=== PATIENT | female | born 1945 | race Hispanic/Latino ===

== ENCOUNTER → 2017-12-30 | Outpatient (CLI) | payer MEDICARE, OTHER ==
[~2017-12-30] MED LIST: ASPIRIN81 M1; ATENOLOL50 MG; CALCIUM; DIOVAN160 MG PO; FISH OIL; FOLIC ACID1 MG; LASIX40 MG PO; LIPITOR40 MG; METAMUCIL; METAMUCIL0.52 GM PO; METRONIDAZOLE500 MG; MULTIGEN PLUS1 EACH; NORCO 5-325 TA1 EACH PO; NORTRIPTYLINE H25 MG; SPIRIVA18 MCG; SYMBICORT 16010.2 GM INH; VITAMIN B COMP1 EAC1
--- NOTE | 2017-12-30 15:27 | Diagnostic Imaging Report ---
EXAMINATION: ABDOMEN-1VIEW (KUB) INDICATION: Renal calculus COMPARISON: KUB 03/02/2017. FINDINGS: There is a nonobstructive bowel gas pattern. No evidence of free intraperitoneal air. There are no abnormal calcifications projecting over the expected location of the kidneys, ureters, or bladder. Status post cholecystectomy. No acute bony findings. Partially visualized bilateral total hip arthroplasties. IMPRESSION: No acute radiographic abnormality. No evidence of stone. Signed by: Dr. Johnny Le MD on 12/30/2017 3:24 PM
== END ==
LOC: RAD 14:16
PROVIDERS: ATTEND Urology
DX: N20.0 Calculus of kidney (principal)
CPT/HCPCS: 74018

== ENCOUNTER → 2018-05-05 | Outpatient (CLI) | payer MEDICARE, OTHER ==
[~2018-05-05] MED LIST changes: +IOPAMIDOL 370 MG/ML 200 ML INFUS..BTL INJ ONE; +SODIUM CHLORIDE 0.9% 100 ML 100 ML ONE; +SODIUM CHLORIDE 0.9% 250ML 500 ML ONE
[2018-05-05 17:54] LABS: CREATININE, SERUM 1.04 mg/dL (0.57-1.11)
--- NOTE | 2018-05-05 21:06 | Diagnostic Imaging Report ---
EXAMINATION: CT angio of the neck and head with contrast. HISTORY:Chiari type 2 malformation, assess carotid artery stenosis. COMPARISON:Report of MRI brain from 04/23/2016, CTA head and neck from 02/06/2016, prior images are not available for comparison at the time of interpretation. TECHNIQUE: Multidetector helical axial images were acquired through the neck and head during infusion of iodinated contrast material. Images were reviewed in multiplanar and 3-dimensional format. Dose modulation, iterative reconstruction, and/or weight based adjustment of the mA/kV was utilized to reduce the radiation dose to as low as reasonably achievable. Contrast: 100 mL of Isovue-370 . FINDINGS: NECK: If carotid bulb stenosis is present, stenosis is measured with respect to the distal extracranial internal carotid artery. Aortic arch and major vessels: Scattered nonstenotic atherosclerotic calcification of the aortic arch and at the origin of right brachiocephalic trunk, left common carotid artery and right subclavian artery. Left subclavian artery stent in place with contrast/flow within the stent, but distal to the stent there is stenosis/occlusion. Distal left subclavian artery is patent arising from the vascular bypass from left common carotid artery. Common carotid arteries and carotid bulb: Nonstenotic multifocal mixed atherosclerotic plaque in bilateral common carotid artery. Hard atherosclerotic plaque at the site of vascular bypass surgery between the distal left subclavian and left common carotid artery results in approximately 10% vascular stenosis. Status post left common carotid, carotid bifurcation/carotid bulb endarterectomy with patent vessels. Internal carotid arteries: Right: Soft atherosclerotic plaque at the origin of right internal carotid artery without significant vascular stenosis. Hard atherosclerotic plaque in proximal cervical segment of right internal carotid artery approximately 1.2 cm above the bifurcation results in approximately 15% vascular stenosis. Left: Soft atherosclerotic plaque in proximal left internal carotid artery just above the carotid bifurcation results in approximately 50% vascular stenosis. Vertebral arteries: Moderate stenosis at the origin of right vertebral artery due to hard atherosclerotic plaque. Nonstenotic focal hard atherosclerotic plaque in V2 and V4 segment of right vertebral artery. Left vertebral artery originates from the left subclavian artery just distal to the stent and proximal to the occlusion/severe stenosis. Focal nonstenotic hard atherosclerotic plaque in the proximal V4 segment of left vertebral artery HEAD: Internal carotid arteries: Mild atherosclerotic plaque in bilateral carotid siphon. Patent bilateral A1 and M1 segments. Vertebral arteries: Nonstenotic focal hard atherosclerotic plaque in bilateral V4 segments. Basilar artery: Patent. Posterior cerebral arteries: Patent. Anatomical variants: Anterior communicating artery :Present Posterior communicating arteries: Patent on right, not visualized on left. Vertebral arteries: Dominant right. Incidental finding: Expected postoperative changes from prior decompressive suboccipital craniectomy for treatment of Chiari malformation. Cervical spine: C5-C6: Severe right foraminal stenosis due to facet and uncovertebral arthrosis. C6-C7: Mild right foraminal stenosis due to facet and uncovertebral arthrosis. C7-T1: Severe right foraminal stenosis due to facet and uncovertebral arthrosis. IMPRESSION: 1. Soft atherosclerotic plaque results in approximately 50% vascular stenosis in proximal left internal carotid artery just above the bifurcation, status post left cervical carotid bifurcation-carotid bulb endarterectomy with patent vessel. 2. Unchanged moderate stenosis at the origin of right vertebral artery. 3. Mild atherosclerosis in bilateral carotid siphon. Multifocal scattered nonstenotic atherosclerotic plaque as detailed above. 4. Left subclavian artery stent with distal stenosis; patent left carotid to distal subclavian artery bypass. Signed by: Dr. Yvonne Harkins M.D. on 05/05/2018 9:03 PM
== END ==
LOC: CT 16:41
PROVIDERS: ATTEND Psychiatry & Neurology Clinical Neurophysiology
DX: G93.5 Compression of brain (principal); I65.29 Occlusion and stenosis of unspecified carotid artery; I67.9 Cerebrovascular disease, unspecified; R41.3 Other amnesia
CPT/HCPCS: 36415; 70496; 70498; 82565; 84520; 96360; J7050; Q9967

== ENCOUNTER → 2018-07-01 | Outpatient (CLI) | payer MEDICARE, OTHER ==
[~2018-07-01] MED LIST changes: -IOPAMIDOL 370 MG/ML 200 ML INFUS..BTL INJ ONE; -SODIUM CHLORIDE 0.9% 100 ML 100 ML ONE; -SODIUM CHLORIDE 0.9% 250ML 500 ML ONE
--- NOTE | 2018-07-01 15:10 | Diagnostic Imaging Report ---
EXAM: Renal Ultrasound INDICATION: Urinary tract infection. COMPARISON: None TECHNIQUE: Transverse and longitudinal images of the kidneys and bladder were obtained. FINDINGS: Right Kidney: Length: Measures 10.8 x 4.2 x 4.8 cm Appearance: Normal echogenicity. Collecting system: No hydronephrosis Stones: None Cyst/Mass: No evidence of solid mass. There is an anechoic, simple appearing cyst within the midpole measuring up to 3.6 cm without associated vascular flow. Left Kidney: Length: Measures 10.9 x 4.2 x 5.0 cm Appearance: Normal echogenicity. Collecting system: No hydronephrosis Stones: None Cyst/Mass: None Bladder: Unremarkable in appearance. Bilateral ureteral jets are seen. IMPRESSION: No evidence of hydronephrosis or stone. Simple appearing right mid pole renal cyst. Signed by: Dr. Johnny Le MD on 07/01/2018 3:07 PM
--- NOTE | 2018-07-01 16:37 | Diagnostic Imaging Report ---
Abdomen/KUB INDICATION: ^[id number] ^[id number] ^URINARY TRACT INFECTION COMPARISON: Abdomen x-ray 12/30/2017 FINDINGS: Medical Devices: Loop recorder device situated over the mediastinum. Dual-lead pacemaker wires terminate in the right atrium and right ventricle. Median sternotomy wires are intact. Cholecystectomy clips are stable. Bowel: Unremarkable bowel gas pattern. No dilated bowel loops. Moderate to large amount of stool in the right colon and moderate amount of stool in the transverse colon. Free air: None Calcifications: None over the renal shadows or along the expected course of the ureters. Two phleboliths in the left pelvis are stable in position. Organomegaly: None Lung bases: Clear. The heart is enlarged with mild vascular congestion Bones: Bilateral hip prostheses are redemonstrated. No evidence of hardware failure. Mild degenerative changes of the spine are stable. Soft tissues: Calcifications of the vascular structures in the pelvis. IMPRESSION: Large amount of stool. No evidence of bowel obstruction. No radiographic evidence of renal calculus. Signed by: Dr. David Armas MD on 07/01/2018 4:34 PM
== END ==
LOC: US 13:57
PROVIDERS: ATTEND Urology
DX: N39.0 Urinary tract infection, site not specified (principal)
CPT/HCPCS: 74018; 76770

== ENCOUNTER 2019-06-06 15:16 | Inpatient (IN) | payer MEDICARE, OTHER ==
[~2019-06-06] VITALS: Ht 160 cm; Wt 72.6 kg
[~2019-06-06 15:16] MED LIST changes: -FOLIC ACID1 MG; +FOLIC ACID1 MG PO
[2019-06-06] MEDS ORDERED: SODIUM CHLORIDE 0.9% 1000ML 1,000 ML IV STA ×2 (15:20→15:23)
--- OUTSIDE RECORDS SUMMARY | 2019-06-06 15:23 | XMS REPORT ---
Author Author [facility] Address Unknown Phone Unavailable Care Team Providers Care [facility] Name Role Phone GRETCHEN LINDER Unavailable Unavailable WEDNESDAY, BOBBI Unavailable Unavailable Payers Payer Name Policy Type Policy Number Effective Date Expiration Date Problems This patient has no known problems. Allergies, Adverse Reactions, Alerts Allergy Name Allergy Type Status Severity Reaction(s) Onset Date Inactive Date Treating Clinician Comments Onions FA Active U 2019-05-04 00:00:00 Penicillins DA Active U 2019-05-04 00:00:00 Sulfa (Sulfonamide Antibiotics) DA Active U 2019-05-04 00:00:00 meloxicam DA Active SV 2019-05-04 00:00:00 Onions FA Active U 2016-05-03 00:00:00 Penicillins DA Active U 2016-05-03 00:00:00 Sulfa (Sulfonamide Antibiotics) DA Active U 2016-05-03 00:00:00 meloxicam DA Active SV 2016-05-03 00:00:00 Medications This patient has no known medications. Results Test Description Test Time Test Comments Text Results Atomic Results Result Comments CBC W/AUTO DIFF 2019-05-29 11:09:00 WHITE BLOOD CELL (test code=WBC) 7.2 K/mm3 4.5-12.5 RED BLOOD CELL (test code=RBC) 2.83 mill/mm3 3.7-5.2 HEMOGLOBIN (test code=HGB) 7.9 gram/dL 11.5-15.5 HEMATOCRIT (test code=HCT) 26.1 % 36.0-46.0 MEAN CELL VOLUME (test code=MCV) 92.2 fL 80-98 MEAN CELL HGB (test code=MCH) 27.9 picogram 27.0-33.0 MEAN CELL HGB CONCETRATION (test code=MCHC) 30.3 gram/dL 33.0-36.0 RED CELL DISTRIBUTION WIDTH (test code=RDW) 14.6 % 11.6-16.2 RED CELL DISTRIBUTION WIDTH SD (test code=RDW-SD) 49.4 fL 37.0-51.0 PLATELET COUNT (test code=PLT) 232 K/mm3 150-450 MEAN PLATELET VOLUME (test code=MPV) 9.8 fL 6.7-11.0 NEUTROPHIL % (test code=NT%) 81.9 % 39.0-69.0 IMMATURE GRANULOCYTE % (test code=IG%) 0.4 % 0.0-5.0 LYMPHOCYTE % (test code=LY%) 7.9 % 25.0-55.0 MONOCYTE % (test code=MO%) 6.3 % 0.0-10.0 EOSINOPHIL % (test code=EO%) 3.1 % 0.0-5.0 BASOPHIL % (test code=BA%) 0.4 % 0.0-1.0 NUCLEATED RBC % (test code=NRBC%) 0.0 % 0-0 NEUTROPHIL # (test code=NT#) 5.88 K/mm3 1.8-7.7 IMMATURE GRANULOCYTE # (test code=IG#) 0.03 x10 3/uL 0-0.03 LYMPHOCYTE # (test code=LY#) 0.57 K/mm3 1.0-5.0 MONOCYTE # (test code=MO#) 0.45 K/mm3 0-0.8 EOSINOPHIL # (test code=EO#) 0.22 K/mm3 0.0-0.5 BASOPHIL # (test code=BA#) 0.03 K/mm3 0.0-0.2 NUCLEATED RBC # (test code=NRBC#) 0.00 K/mm3 0.0-0.1 FE W/TOTAL IRON BINDING CAP.2019-05-27 19:22:00* Test Item Value Reference Range Comments SERUM IRON (test code=IRON) 208 ug/dL 50-175 TOTAL IRON BINDING CAPACITY (test code=TIBC) 486 mcg/dL 250-450 IRON SATURATION (test code=FESAT) 42.80 % 13-45 BASIC METABOLIC [id number] 05:34:00* Test Item Value Reference Range Comments SODIUM (test code=NA) 143 mmol/L 136-145 POTASSIUM (test code=K) 3.4 mmol/L 3.5-5.1 CHLORIDE (test code=CL) 109.0 mmol/L 98-107 CARBON DIOXIDE (test code=CO2) 26.0 mmol/L 21-32 ANION GAP (test code=GAP) 11.4 10-20 GLUCOSE (test code=GLU) 115 mg/dL 74-106 BLOOD UREA NITROGEN (test code=BUN) 19 mg/dL 7-18 GLOMERULAR FILTRATION RATE (test code=GFR) > 60 mL/min >=60 Estimated GFR by using Modified MDRD formula.Chronic kidney disease is defined as either kidney damageor GFR <60 mL/min/1.73 m2 for >3 months. CREATININE (test code=CREAT) 0.90 mg/dL 0.55-1.02 Note change in reference range due to change in reagent. BUN/CREATININE RATIO (test code=BUN/CREA) 21.1 10-20 CALCIUM (test code=CA) 8.7 mg/dL 8.5-10.1 BASIC METABOLIC [id number] 05:25:00* Test Item Value Reference Range Comments SODIUM (test code=NA) 143 mmol/L 136-145 POTASSIUM (test code=K) 3.4 mmol/L 3.5-5.1 CHLORIDE (test code=CL) 109.0 mmol/L 98-107 CARBON DIOXIDE (test code=CO2) mmol/L 21-32 ANION GAP (test code=GAP) 10-20 GLUCOSE (test code=GLU) mg/dL 74-106 BLOOD UREA NITROGEN (test code=BUN) mg/dL 7-18 GLOMERULAR FILTRATION RATE (test code=GFR) mL/min >=60 CREATININE (test code=CREAT) mg/dL 0.55-1.02 BUN/CREATININE RATIO (test code=BUN/CREA) 10-20 CALCIUM (test code=CA) mg/dL 8.5-10.1 CBC W/AUTO [id number] 05:07:00* Test Item Value Reference Range Comments WHITE BLOOD CELL (test code=WBC) 6.0 K/mm3 4.5-12.5 RED BLOOD CELL (test code=RBC) 2.98 mill/mm3 3.7-5.2 HEMOGLOBIN (test code=HGB) 8.3 gram/dL 11.5-15.5 HEMATOCRIT (test code=HCT) 27.1 % 36.0-46.0 MEAN CELL VOLUME (test code=MCV) 90.9 fL 80-98 MEAN CELL HGB (test code=MCH) 27.9 picogram 27.0-33.0 MEAN CELL HGB CONCETRATION (test code=MCHC) 30.6 gram/dL 33.0-36.0 RED CELL DISTRIBUTION WIDTH (test code=RDW) 14.4 % 11.6-16.2 RED CELL DISTRIBUTION WIDTH SD (test code=RDW-SD) 47.5 fL 37.0-51.0 PLATELET COUNT (test code=PLT) 194 K/mm3 150-450 MEAN PLATELET VOLUME (test code=MPV) 10.8 fL 6.7-11.0 NEUTROPHIL % (test code=NT%) 81.6 % 39.0-69.0 IMMATURE GRANULOCYTE % (test code=IG%) 0.3 % 0.0-5.0 LYMPHOCYTE % (test code=LY%) 9.6 % 25.0-55.0 MONOCYTE % (test code=MO%) 5.5 % 0.0-10.0 EOSINOPHIL % (test code=EO%) 2.5 % 0.0-5.0 BASOPHIL % (test code=BA%) 0.5 % 0.0-1.0 NUCLEATED RBC % (test code=NRBC%) 0.0 % 0-0 NEUTROPHIL # (test code=NT#) 4.91 K/mm3 1.8-7.7 IMMATURE GRANULOCYTE # (test code=IG#) 0.02 x10 3/uL 0-0.03 LYMPHOCYTE # (test code=LY#) 0.58 K/mm3 1.0-5.0 MONOCYTE # (test code=MO#) 0.33 K/mm3 0-0.8 EOSINOPHIL # (test code=EO#) 0.15 K/mm3 0.0-0.5 BASOPHIL # (test code=BA#) 0.03 K/mm3 0.0-0.2 NUCLEATED RBC # (test code=NRBC#) 0.00 K/mm3 0.0-0.1 - XR HIP W PEL BI MIN5 [id number] 21:36:00 FAX: Adi Eisenberg MD [phone] [place]: St: ADM FAX: Franklyn Gorman MD [phone] FAX: Jackelyn White MD [phone] Name: ANTONIASANTOS ANN [facility] : 1945 Age/S: 74/F [address] Unit #: [id number] Loc: [place] [address] Phys: Adi Erickson MD Acct: [id number] Dis Date: Status: ADM IN ONE #: [phone] Exam Date: 05/24/20192041 FAX #: [phone] Reason: pain after fall EXAMS: CPT CODE: [id number] XR HIP W PEL BI MIN5 VW 67675 HISTORY: Pain after fall. COMPARISON: X-ray from May 04, 2019. Location: TH. Bilateral hip series, 5 views: Pelvic ring is intact on a single view. Additional views would be of value. Sy mphysis is well opposed. Bilateral hip prosthesis appear well-positioned. No loosening or fracture is noted. SI joints are preserved. Mild osteo penia is noted. Soft tissues are normal. Vascular calcifications. IMPRESSION: No acute fracture or dislocation of eith er hip. Bilateral hip prosthesis in good position without loosening or fracture. a t 2135 Reported and signed by: Buddy Gomez M.D. CC: Adi Erickson MD; Franklyn Johnson MD; Jackelyn Yusuf MD Technol ogist: CICI CorralesR Trnscrd Date/Time/ By: 05/24/2019 (2135) : By: [email or web address] Orig Print D/T: S: 05/24/2019 (3 806) PAGE 1 Signed Report FOLIC [id number] 20:21:00* Test Item Value Reference Range Comments FOLIC ACID (test code=FOL) 28.3 ng/mL 3.10-17.50 [id number] 20:21:00* Test Item Value Reference Range Comments FERRITIN (test code=EDI) 22 ng/mL 8-388 FOLIC [id number] 20:17:00* Test Item Value Reference Range Comments FOLIC ACID (test code=FOL) ng/mL 3.10-17.50 [id number] 20:17:00* Test Item Value Reference Range Comments FERRITIN (test code=EDI) 22 ng/mL 8-388 VITAMIN [id number] 20:03:00* Test Item Value Reference Range Comments VITAMIN B12 (test code=VITB12) 570 pg/mL 193-986 RETICULOCYTE [id number] 19:28:00* Test Item Value Reference Range Comments RETICULOCYTE COUNT (test code=RETICT) 2.99 % 0.5-2.0 RETIC COUNT ABSOLUTE (test code=RET#) 0.080 mill/mm3 0.016-0.095 IMMATURE RETICULOCYTE FRACTION (test code=IRF) 26.3 % 3.0-15.9 Values above normal range indicate an increase in RBCcellular response from bone marrow. RETICULOCYTE HGB EQUIVALENT (test code=RETHE) 29.2 pg 28.2-35.7 RET-He is a direct estimate of recent functionalavailability of iron in the cell, therefore, decreasedRET-He is indicative of iron deficiency. BASIC METABOLIC [id number] 08:21:00* Test Item Value Reference Range Comments SODIUM (test code=NA) 143 mmol/L 136-145 POTASSIUM (test code=K) 3.5 mmol/L 3.5-5.1 CHLORIDE (test code=CL) 111.0 mmol/L 98-107 CARBON DIOXIDE (test code=CO2) 27.0 mmol/L 21-32 ANION GAP (test code=GAP) 8.5 10-20 GLUCOSE (test code=GLU) 120 mg/dL 74-106 BLOOD UREA NITROGEN (test code=BUN) 14 mg/dL 7-18 GLOMERULAR FILTRATION RATE (test code=GFR) > 60 mL/min >=60 Estimated GFR by using Modified MDRD formula.Chronic kidney disease is defined as either kidney damageor GFR <60 mL/min/1.73 m2 for >3 months. CREATININE (test code=CREAT) 0.90 mg/dL 0.55-1.02 Note change in reference range due to change in reagent. BUN/CREATININE RATIO (test code=BUN/CREA) 15.6 10-20 CALCIUM (test code=CA) 8.9 mg/dL 8.5-10.1 BASIC METABOLIC [id number] 08:12:00* Test Item Value Reference Range Comments SODIUM (test code=NA) 143 mmol/L 136-145 POTASSIUM (test code=K) 3.5 mmol/L 3.5-5.1 CHLORIDE (test code=CL) 111.0 mmol/L 98-107 CARBON DIOXIDE (test code=CO2) mmol/L 21-32 ANION GAP (test code=GAP) 10-20 GLUCOSE (test code=GLU) mg/dL 74-106 BLOOD UREA NITROGEN (test code=BUN) mg/dL 7-18 GLOMERULAR FILTRATION RATE (test code=GFR) mL/min >=60 CREATININE (test code=CREAT) mg/dL 0.55-1.02 BUN/CREATININE RATIO (test code=BUN/CREA) 10-20 CALCIUM (test code=CA) mg/dL 8.5-10.1 CBC W/AUTO [id number] 07:58:00* Test Item Value Reference Range Comments WHITE BLOOD CELL (test code=WBC) 5.5 K/mm3 4.5-12.5 RED BLOOD CELL (test code=RBC) 2.68 mill/mm3 3.7-5.2 HEMOGLOBIN (test code=HGB) 7.4 gram/dL 11.5-15.5 HEMATOCRIT (test code=HCT) 24.5 % 36.0-46.0 MEAN CELL VOLUME (test code=MCV) 91.4 fL 80-98 MEAN CELL HGB (test code=MCH) 27.6 picogram 27.0-33.0 MEAN CELL HGB CONCETRATION (test code=MCHC) 30.2 gram/dL 33.0-36.0 RED CELL DISTRIBUTION WIDTH (test code=RDW) 14.9 % 11.6-16.2 RED CELL DISTRIBUTION WIDTH SD (test code=RDW-SD) 49.7 fL 37.0-51.0 PLATELET COUNT (test code=PLT) 193 K/mm3 150-450 MEAN PLATELET VOLUME (test code=MPV) 10.5 fL 6.7-11.0 NEUTROPHIL % (test code=NT%) 78.3 % 39.0-69.0 IMMATURE GRANULOCYTE % (test code=IG%) 0.2 % 0.0-5.0 LYMPHOCYTE % (test code=LY%) 11.7 % 25.0-55.0 MONOCYTE % (test code=MO%) 7.0 % 0.0-10.0 EOSINOPHIL % (test code=EO%) 2.3 % 0.0-5.0 BASOPHIL % (test code=BA%) 0.5 % 0.0-1.0 NUCLEATED RBC % (test code=NRBC%) 0.0 % 0-0 NEUTROPHIL # (test code=NT#) 4.33 K/mm3 1.8-7.7 IMMATURE GRANULOCYTE # (test code=IG#) 0.01 x10 3/uL 0-0.03 LYMPHOCYTE # (test code=LY#) 0.65 K/mm3 1.0-5.0 MONOCYTE # (test code=MO#) 0.39 K/mm3 0-0.8 EOSINOPHIL # (test code=EO#) 0.13 K/mm3 0.0-0.5 BASOPHIL # (test code=BA#) 0.03 K/mm3 0.0-0.2 NUCLEATED RBC # (test code=NRBC#) 0.00 K/mm3 0.0-0.1 [id number] 16:12:00* Test Item Value Reference Range Comments TROPONIN-I (test code=TROPI) <0.015 ng/mL 0-0.045 COMMENTS TO LOGISTICS PLANNING MANAGER: COLLECT 3 HOURS AFTER PREVIOUS [id number] 11:35:00* Test Item Value Reference Range Comments TROPONIN-I (test code=TROPI) 0.028 ng/mL 0-0.045 COMMENTS TO LOGISTICS PLANNING MANAGER: COLLECT 3 HOURS AFTER PREVIOUS SAMPLELACTIC [id number] 04:38:00* Test Item Value Reference Range Comments LACTIC ACID (test code=LACT) 2.3 mmol/L 0.4-1.9 Results called to [id number] by [email or web address] 05/23/19 0436Critical results verified and read back by Nurse? Y URINALYSIS [id number] 01:31:00* Test Item Value Reference Range Comments UA COLOR (test code=COLU) Light-Yellow YELLOW UA APPEARANCE (test code=APPU) CLEAR CLEAR UA GLUCOSE DIPSTICK (test code=DGLUU) NEGATIVE mg/dL NEGATIVE UA BILIRUBIN DIPSTICK (test code=BILU) NEGATIVE mg/dL NEGATIVE UA KETONE DIPSTICK (test code=KETU) NEGATIVE mg/dL NEGATIVE UA SPECIFIC GRAVITY (test code=SGU) 1.033 1.001-1.035 UA BLOOD DIPSTICK (test code=ELENITA) Negative mg/dL NEGATIVE UA PH DIPSTICK (test code=LUZ MARIA) 6.0 5.0-8.0 UA PROTEIN DIPSTICK (test code=PROU) 20 (Trace) mg/dL NEGATIVE UA UROBILINIOGEN DIPSTICK (test code=URO) Normal mg/dL NEGATIVE UA NITRITE DIPSTICK (test code=MADHU) NEGATIVE NEGATIVE UA LEUKOCYTE ESTERASE W REFLEX (test code=LEUUR) NEGATIVE Aviva/uL NEGATIVE UA WBC (test code=WBCU) 0-5 per HPF 0-5 UA RBC (test code=RBCU) 0-2 #/HPF 0-5 UA EPITHELIAL CELLS (test code=EPIU) Few (2-5/hpf) per HPF FEW UA BACTERIA (test code=BACU) MODERATE #/HPF NONE UA HYALINE CAST (test code=HYALU) 3-5 #/LPF 0-5 UA AMORPHOUS SEDIMENT (test code=AMORU) MODERATE #/LPF NONE Urine Source? Clean CatchURINALYSIS [id number] 01:23:00* Test Item Value Reference Range Comments UA COLOR (test code=COLU) Light-Yellow YELLOW UA APPEARANCE (test code=APPU) CLEAR CLEAR UA GLUCOSE DIPSTICK (test code=DGLUU) NEGATIVE mg/dL NEGATIVE UA BILIRUBIN DIPSTICK (test code=BILU) NEGATIVE mg/dL NEGATIVE UA KETONE DIPSTICK (test code=KETU) NEGATIVE mg/dL NEGATIVE UA SPECIFIC GRAVITY (test code=SGU) 1.033 1.001-1.035 UA BLOOD DIPSTICK (test code=ELENITA) Negative mg/dL NEGATIVE UA PH DIPSTICK (test code=LUZ MARIA) 6.0 5.0-8.0 UA PROTEIN DIPSTICK (test code=PROU) 20 (Trace) mg/dL NEGATIVE UA UROBILINIOGEN DIPSTICK (test code=URO) Normal mg/dL NEGATIVE UA NITRITE DIPSTICK (test code=MADHU) NEGATIVE NEGATIVE UA LEUKOCYTE ESTERASE W REFLEX (test code=LEUUR) NEGATIVE Aviva/uL NEGATIVE UA WBC (test code=WBCU) per HPF 0-5 UA RBC (test code=RBCU) per HPF 0-5 UA EPITHELIAL CELLS (test code=EPIU) per HPF Few UA BACTERIA (test code=BACU) per HPF NONE Urine Source? Clean Catch- XR PELVIS 1/2 [id number] 23:12:00 FAX: Justin Baig MD [place]: B St: REG FAX: Franklyn Gorman MD [phone] Name: SHELBY KNIGHTEVELINE REYEZ [facility] : 1945 Age/S: 74/F [address] [facility] Unit #: [id number] Loc: [place] [address] Phys: Justin Baig MD Acct: [id number] Dis Date: Status: REG ER PHONE #: [phone] Exam Date: 05/22/2019 2300 FAX #: [phone] Reason: PELVIC PAIN EXAMS: CPT CODE: [id number] XR PELVIS 1/2 VIEWS 61928 Pelvis 2 views Dictation location N 13 Clinical history pelvic pain TECHNIQUE: 2 frontal views of the pelvis were obtained. FINDINGS: There are bilateral hip replacements. The tips of the femoral components are no t included on the images. The pelvic ring is intact. SI joints and pubic symphysis are intact. IMPRESSION: No evidence of fracture. Recommend obtaining 2 views of the femurs to fully image the femoral prosthetic components. at 2312 Reported and signed by: Mercedez Villalba M.D. CC: Justin Baig MD; Franklyn Johnson MD Technologist: Juliette Nielsen Trnctrd Date/Time/By: 05/22/2019 (0021) : By: Aliza Orig Print D/T: S: 05/22/2019 (2906) PAGE 1 Signed Report - XR ANKLE 3 + V [id number] 23:10:00 FAX: Justin Baig MD [place]: St: [facility] FAX: Y Franklyn Johnson MD [phone] Name: SANTOS KNIGHT [facility] : 1945 Age/S: 74/F [address] [facility] Unit #: [id number] Loc: [place] [address] Phys: Justin Baig MD Acct: [id number] Dis Date: Status: REG ER PHONE #: [phone] Exam Date: 05/22/2019 2300 FAX #: [phone] Reason: ANKLE PAIN EXAMS: CPT CODE: [id number] XR ANKLE 3 + V RT [address] Location: TH3 Right ankle x-ray exam, 3 views conducted on 05/22/19 CLINICAL HISTORY: Right ankle pain. Trauma. Emergency room present location There is an acute comminuted but essentially nondisplaced fracture through the distal aspect of the right fibula. No other fracture or subluxation. The ankle plafond demonstrates normal alignment. IMPRESSION: Acute but essentially nondisplaced comminuted distal right fibular fracture at 2310 Reported and signed by: Jo-Ann Singleton M.D. CC: Justin Baig MD; Franklyn Johnson MD Technologist: Juliette Nielsen Trnscrd Date/Time/By: 05/22/2019 (2309) : By: [email or web address] Orig Print D/T: S: 05/22/2019 (0196) PAGE 1 Signed Report - XR CHEST 1 [id number] 23:09:00 FAX: Justin Baig MD [place]: St: REG FAX: Y Franklyn Johnson MD [phone] Name: SANTOS KNIGHT [facility] : 1945 Age/S: 74/F [address] [facility] Unit #: [id number] Loc: [place] [address] Phys: Justin Baig MD Acct: [id number] Dis Date: Status: REG ER PHONE #: [phone] Exam Date: 05/22/20192299 FAX #: [phone] Reason: CHEST PAIN EXAMS: CPT CODE: [id number] XR CHEST 1 V 02927 Location: T18 CHEST X-RAY: AP frontal projection, one view, 05/22/19 CLINICAL HISTORY: Chest pain. ER presentation COMPARISON EXAMS: Chest x-ray exam 08/19/18 FINDINGS: Heart size is mildly to moderately prominent with pulmonary venous congestion . This has progressed when compared to the prior study. Evolving interstitial edema is seen also. No alveolar edema or pleural effusion is identified. The mediastinal structures are unremarkable. IMPRESSION: Evolving small degree of cardiac decompensation. at 6869 Reported and signed by: Jo-Ann Singleton M.D. CC: Justin Baig MD; Franklyn Johnson MD Technologist: Juliette Nielsen Trnscrd Date/Time/By: 05/22/2019 (2308) : By: [email or web address] Orig Print D/T: S: 05/22/2019 (1603) PAGE 1 Signed Report - CT C-SPINE W/O [id number] 23:07:00 Name: SANTOS KNIGHT [facility] : 1945 Age/S: 74 / F [address] [facility] Unit #: [id number] Loc: [place] [address] Phys: Justin Baig MD Acct: [id number] Dis Date: Status: REG ER PHONE #: [phone] Exam Date: 05/22/20192234 FAX #: [phone] Reason: Neck Pain EXAMS: CPT CODE: [id number] CT C-SPINE W/O CONTRAST 64241 Location: T 18 CT cervical spine, 0 conducted on 05/22/19 TECHNIQUE: CT examination of the cervical spine without contrast was performed on a helical scanner without contrast with coronal and sagittal reformatted imaging obtained. This was acquired with 2D reformatted acquired using MPR software on CT workstation. Scanning conducted in axial plane from skull base down to upper thoracic spine. 2.5 mm contiguous axial slice thickness acquired . The examination was performed with low radiation dose technique. Automatic exposure control was utilized to reduce radiation dose. Exa mination conducted on updated helical CT scanner CLINICAL HISTORY: Neck pain. Trauma , patient presenting to the emergency room. Patient on blood thinners FINDINGS: There is no acute fracture or subluxation. Cervical spondylosis is seen but without compromise of the canal . Cervical spondylosis in particular at C5-C6. Vascular stent seen in the proximal left subclavian artery.. Assessment of the skull base unremarkable. Prevertebral soft tissues unremarkable. The atlano axial alessio nt is unremarkable . No pneumothorax or rib fracture is seen IMPRESSION: No acute fracture Cervical spondylosis at 2307 Reported and signed by: Jo-Ann Singleton M.D. CC: Justin Baig MD; Franklyn Johnson MD Technologist:ROSINA COCHRAN, RT; [facility] CTDI: DLP: Trnscb Date/Time: 05/22/2019 (2306) [email or web address] Orig Print D/T: S: 05/22/2019 (0805) PAGE 1 Signed Report - CT ABD PELVIS [id number] 23:05:00 Name: SANTOS KNIGHT [facility] : 1945 Age/S: 74 / F [address] [facility] Unit #: [id number] Loc: [place] [address] Phys: Justin Baig MD Acct: [id number] Dis Date: Status: REG ER PHONE #: [phone] Exam Date: 05/22/20192237 FAX #: [phone] Reason: trauma hypotensive EXAMS: CPT CODE: [id number] CT ABD PELVIS W/CONT 75534 AFTER HOURS SERVICE ON: 05/22/2019 11:[address] Scan of the Abdomen and Pelvis With Contrast Location Code M12 History: trauma hypotensive Technique: Axial and reconstructed coronal scans were performed on a helical scanner post IV contrast. Delayed scans were also obtained. One or more of the following dose reduction techniques were used: Automated exposure control, adjustment of the mA and/or kV according to patient size, and/or utilization of iterative reconstruction technique. Findings: There is a 4 mm lingular pulmonary nodule which is new from prior CTs including 10/27/2012. Recommend follow-up chest CT if patient has known risk factors. There is no solid organ laceration. There is no abdominal or pelvic free fluid or evidence of intraperitoneal hemorrhage. There is a slightly enlarging right hepatic cyst in the dome measuring 1.5 cm, previously measuring 0.9 cm on 10/27/2012. There is a stable subcentimeter adjacent hypodense/cystic lesion as well. There is diffusely hypodense consistent with steatosis. Well bladder is absent. There are no peripancreatic inflammatory changes. Spleen is unremarkable. Adrenal glands are within normal limits. There is a slightly enlarging right upper pole renal cyst measuring 3.2 cm, previously 2.0 cm. There is no hydronephrosis or pyelonephritis in either kidney. Bladder is within normal limits. Pelvic structures are obscured by hip prostheses. Uterus is absent. There is no definite pelvic free fluid. Small bowel loops and colon are within normal limits. The appendix is not visualized. IMPRESSION: No acute traumatic findings in the abdomen or pelvis. PAGE 1 Signed Report (CONTINUED) Name: WILFREDO KNIGHT [facility] : 1945 Age/S: [age] / F [address] Unit #: [id number] Loc: [place] [address] Phys: Justin Baig MD Acct: [id number] Dis Date: Status: REG ER PHONE #: [phone] Exam Date: 05/22/20192237 FAX #: [phone] Reason: trau ma hypotensive EXAMS: CPT CODE: [id number] CT ABD PELVIS W/CONT 26852 <Continued> Additional incidental findings above. at 2305 Reported and signed by: Radha Melendrez M.D. CC: Justin Baig MD; Franklyn Johnson MD Technologist:ROSINA COCHRAN, RT; Heidy Aparicio CTDI: DLP: Trnscb Date/Time: 05/22/2019 (2304) [email or web address] Orig Print D/T: S: 05/22/2019 (2308) PAGE 2 Signed Report - CT HEAD/BRAIN W/O [id number] 22:58:00 Name: SANTOS KNIGHT [facility] : 1945 Age/S: 74 / F [address] Unit #: [id number] Loc: [place] [address] Phys: Anthony Baig MD Acct: [id number] Di s Date: Status: REG ER PHONE #: [phone] Exam Date: 05/22/20192229 FAX #: [phone] Reason: HEADACHE EXAMS: CPT CODE: [id number] CT HEAD/BRAIN W/O CONT 58413 EXAM: - CT HEAD/BRAIN W/O CONT HISTORY: Fall. TECHNIQUE: Axial tomograms thr ough the brain were obtained without intravenous contrast. This exam was performed according to our departmental dose-optimization program, wh ich includes automated exposure control, adjustment of the mA and/or kV ac cording to patient size and/or use of iterative reconstruction technique. COMPARISON: May 04, 2019. FINDINGS: There is no intracranial hemorrhage, mass, or mass effect. The ventricular system and sulci are age-appropriate. 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 Prior suboccipital c raniectomy changes are present. The osseous structures and orbits, show no significant abnormalities. The visualized sinuses are relatively clear. The soft tissues are unremarkable. There is no significant change c ompared to previous exam. IMPRESSION: No evide nce of acute intracranial hemorrhage. Electronically Bita d by Ramirez Tyler MD on 05/22/2019 at 6131 Reported an d signed by: Ramirez Tyler MD CC: Justin Baig MD; Franklyn Johnson MD Technologist:ROSINA COCHRAN, ; [facility] CTDI: DLP: Trnscb Date/Time: 05/22/2019 (2257) [email or web address] Orig Print D/T: S: 05/22/2019 (0383) PAGE 1 Signed Report LACTIC [id number] 22:57:00* Test Item Value Reference Range Comments LACTIC ACID (test code=LACT) 2.3 mmol/L 0.4-1.9 Results called to by V.[email or web address] 05/22/19 2257Critical results verified and read back by Nurse? YES BASIC METABOLIC [id number] 22:40:00* Test Item Value Reference Range Comments SODIUM (test code=NA) 142 mmol/L 136-145 POTASSIUM (test code=K) 3.3 mmol/L 3.5-5.1 CHLORIDE (test code=CL) 104.0 mmol/L 98-107 CARBON DIOXIDE (test code=CO2) 28.0 mmol/L 21-32 ANION GAP (test code=GAP) 13.3 10-20 GLUCOSE (test code=GLU) 163 mg/dL 74-106 BLOOD UREA NITROGEN (test code=BUN) 22 mg/dL 7-18 GLOMERULAR FILTRATION RATE (test code=GFR) 37 mL/min >=60 Estimated GFR by using Modified MDRD formula.Chronic kidney disease is defined as either kidney damageor GFR <60 mL/min/1.73 m2 for >3 months. CREATININE (test code=CREAT) 1.40 mg/dL 0.55-1.02 Note change in reference range due to change in reagent. BUN/CREATININE RATIO (test code=BUN/CREA) 15.7 10-20 CALCIUM (test code=CA) 8.2 mg/dL 8.5-10.1 HEPATIC FUNCTION [id number] 22:40:00* Test Item Value Reference Range Comments TOTAL PROTEIN (test code=PROT) 6.1 gram/dL 6.4-8.2 ALBUMIN (test code=ALB) 3.4 g/dL 3.4-5.0 GLOBULIN (test code=GLOB) 2.7 gram/dL 2.7-4.2 ALBUMIN/GLOBULIN RATIO (test code=A/G) 1.3 0.75-1.50 BILIRUBIN TOTAL (test code=BILT) 0.30 mg/dL 0.0-1.0 BILIRUBIN DIRECT (test code=BILD) 0.10 mg/dL 0.0-0.20 SGOT/AST (test code=AST) 14 IUnit/L 15-37 SGPT/ALT (test code=ALT) 14 IUnit/L 12-78 ALKALINE PHOSPHATASE TOTAL (test code=ALKP) 53 IUnit/L 45-117 Note change in reference range due to change in reagent. [id number] 22:40:00* Test Item Value Reference Range Comments LIPASE (test code=LIP) 39 U/L 73.0-393.0 [id number] 22:40:00* Test Item Value Reference Range Comments TROPONIN-I (test code=TROPI) <0.015 ng/mL 0-0.045 BASIC METABOLIC [id number] 22:33:00* Test Item Value Reference Range Comments SODIUM (test code=NA) 142 mmol/L 136-145 POTASSIUM (test code=K) 3.3 mmol/L 3.5-5.1 CHLORIDE (test code=CL) 104.0 mmol/L 98-107 CARBON DIOXIDE (test code=CO2) mmol/L 21-32 ANION GAP (test code=GAP) 10-20 GLUCOSE (test code=GLU) mg/dL 74-106 BLOOD UREA NITROGEN (test code=BUN) mg/dL 7-18 GLOMERULAR FILTRATION RATE (test code=GFR) mL/min >=60 CREATININE (test code=CREAT) mg/dL 0.55-1.02 BUN/CREATININE RATIO (test code=BUN/CREA) 10-20 CALCIUM (test code=CA) mg/dL 8.5-10.1 HEPATIC FUNCTION [id number] 22:33:00* Test Item Value Reference Range Comments TOTAL PROTEIN (test code=PROT) gram/dL 6.4-8.2 ALBUMIN (test code=ALB) g/dL 3.4-5.0 GLOBULIN (test code=GLOB) gram/dL 2.7-4.2 ALBUMIN/GLOBULIN RATIO (test code=A/G) 0.75-1.50 BILIRUBIN TOTAL (test code=BILT) mg/dL 0.0-1.0 BILIRUBIN DIRECT (test code=BILD) mg/dL 0.0-0.20 SGOT/AST (test code=AST) IUnit/L 15-37 SGPT/ALT (test code=ALT) IUnit/L 12-78 ALKALINE PHOSPHATASE TOTAL (test code=ALKP) IUnit/L 45-117 [id number] 22:33:00* Test Item Value Reference Range Comments LIPASE (test code=LIP) U/L 73.0-393.0 [id number] 22:33:00* Test Item Value Reference Range Comments TROPONIN-I (test code=TROPI) ng/mL 0-0.045 PROTHROMBIN [id number] 22:14:00* Test Item Value Reference Range Comments PROTHROMBIN TIME PATIENT (test code=PTP) 12.6 seconds 9.0-14.0 INTERNATIONAL NORMAL RATIO (test code=INR) 1.1 0.8-1.2 The therapeutic range for oral anticoagulant therapy formost indications is an international normalized ratio (INR)of between 2.0 and 3.0. The recommended therapeutic INRrange for various clinical situations is listed below: Clinical Situation INR range Pulmonary e mbolism treatment (2.0-3.0)Venous thrombosis treatmentVenous thrombosis prophylaxis (high risk surgery)Prevention of systemic embolism from: Acute myocardial infarction Valvular heart disease Atrial fibrillation Mechanical prosthetic heart valves (2.5-3.5) IS PATIENT ON ANTICOAGULANTS? NTHROMBOPLASTIN TIME [id number] 22:14:00* Test Item Value Reference Range Comments THROMBOPLASTIN TIME PARTIAL (test code=PTT) 31.3 seconds 25.0-36.5 IS PATIENT ON ANTICOAGULANTS? NCBC W/O [id number] 22:12:00* Test Item Value Reference Range Comments WHITE BLOOD CELL (test code=WBC) 5.7 K/mm3 4.5-12.5 RED BLOOD CELL (test code=RBC) 2.87 mill/mm3 3.7-5.2 HEMOGLOBIN (test code=HGB) 8.0 gram/dL 11.5-15.5 HEMATOCRIT (test code=HCT) 25.8 % 36.0-46.0 MEAN CELL VOLUME (test code=MCV) 89.9 fL 80-98 MEAN CELL HGB (test code=MCH) 27.9 picogram 27.0-33.0 MEAN CELL HGB CONCETRATION (test code=MCHC) 31.0 gram/dL 33.0-36.0 RED CELL DISTRIBUTION WIDTH (test code=RDW) 14.7 % 11.6-16.2 PLATELET COUNT (test code=PLT) 214 K/mm3 150-450 MEAN PLATELET VOLUME (test code=MPV) 10.6 fL 6.7-11.0 - XR KNEE 3 V [id number] 12:46:00 FAX: Abhishek Rosen [phone] [place]: B St: REG FAX: Franklyn Gorman MD [phone] Name: SANTOS KNIGHT [facility] : 1945 Age/S: 74/F [address] [facility] Unit #: [id number] Loc: [place] [address] Phys: Abhishek Lujan MD Acct: [id number] Dis Date: Status: REG ER PHONE #: [phone] Exam Date: 05/04/2019 1212 FAX #: [phone] Reason: KNEE PAIN EXAMS: CPT CODE: [id number] XR KNEE 3 V LT 22355 CLINICAL HISTORY: KNEE PAIN TECHNIQUE: AP, lateral, and oblique views of the left knee COMPARISON: None FINDINGS: No acute fracture. Bony trabecular pattern is unremark able. No cortical destruction or periosteal reaction. No naeem int effusion is present. No stranding in Hoffa's fat pad. Regiona l soft tissues are unremarkable. IMPRESSION: Negative examination of the left knee Location: [facility] at 3910 Reported and signed by: Cabrera Vanegas MD CC: Abhishek Kirkland MD; Franklyn Johnson MD Technologist: LILIA ESTES JR Trnscrd Date/Time/By: 05/04/2019 (3583) : By: [email or web address] Orig Print D/T: S: 05/04/2019 (7166) PAGE 1 Signed Report - XR HIP W/PEL UNI 2+V [id number] 12:43:00 FAX: Abhishek Rosen [phone] [place]: B St: [facility] FAX: Franklyn Gorman MD [phone] Name: SANTOS KNIGHT [facility] : 1945 Age/S: 74/F [facility] Unit #: [id number] Loc: [place] [address] Phys: Abhishek Lujan MD Acct: [id number] Dis Date: Status: REG ER PHONE #: [phone] Exam Date: 05/04/2019 1212 FAX #: [phone] Reason: HIP PAIN EXAMS: CPT CODE: [id number] XR HIP W/PEL UNI 2+V LT 87686 HISTORY: HIP PAIN EXAM: AP pelvis as well as AP and frog-leg views of the left hip Comparison: CT abdomen and pelvis October 27, 2012 FINDINGS: There is been prior hemia rthroplasty involving both hips. The hip joints are appropriately aligned. No evidence of hardware loosening. No acute fracture is seen in t he bony pelvis or in either femur. No diastases of the pubic symphysis. Degenerative changes are present in the spine. Calcifications are se en in the bilateral femoral arteries. IMPRESSION: Satisfa ctory bone alignment following bilateral hip hemiarthroplasties with no hardware loosening or acute bony injury. Location: [facility] at 1243 Reported and signed by: Cabrera Vanegas MD CC: Abhishek Coats MD; Franklyn Johnson MD Technologist: LILIA ESTES JR Trnscrd Date/Time/By: 05/04/2019 (0047) : By: [email or web address] Orig Print D/T: S: 05/04/2019 (9192) PAGE 1 Signed Report BASIC METABOLIC [id number] 12:26:00* Test Item Value Reference Range Comments SODIUM (test code=NA) 142 mmol/L 136-145 POTASSIUM (test code=K) 3.9 mmol/L 3.5-5.1 CHLORIDE (test code=CL) 109.0 mmol/L 98-107 CARBON DIOXIDE (test code=CO2) 25.0 mmol/L 21-32 ANION GAP (test code=GAP) 11.9 10-20 GLUCOSE (test code=GLU) 88 mg/dL 74-106 BLOOD UREA NITROGEN (test code=BUN) 16 mg/dL 7-18 GLOMERULAR FILTRATION RATE (test code=GFR) 40 mL/min >=60 Estimated GFR by using Modified MDRD formula.Chronic kidney disease is defined as either kidney damageor GFR <60 mL/min/1.73 m2 for >3 months. CREATININE (test code=CREAT) 1.30 mg/dL 0.55-1.02 Note change in reference range due to change in reagent. BUN/CREATININE RATIO (test code=BUN/CREA) 12.3 10-20 CALCIUM (test code=CA) 8.9 mg/dL 8.5-10.1 BASIC METABOLIC [id number] 12:25:00* Test Item Value Reference Range Comments SODIUM (test code=NA) 142 mmol/L 136-145 POTASSIUM (test code=K) 3.9 mmol/L 3.5-5.1 CHLORIDE (test code=CL) 109.0 mmol/L 98-107 CARBON DIOXIDE (test code=CO2) mmol/L 21-32 ANION GAP (test code=GAP) 10-20 GLUCOSE (test code=GLU) mg/dL 74-106 BLOOD UREA NITROGEN (test code=BUN) mg/dL 7-18 GLOMERULAR FILTRATION RATE (test code=GFR) mL/min >=60 CREATININE (test code=CREAT) mg/dL 0.55-1.02 BUN/CREATININE RATIO (test code=BUN/CREA) 10-20 CALCIUM (test code=CA) mg/dL 8.5-10.1 - CT HEAD/BRAIN W/O [id number] 12:25:00 Name: SANTOS KNIGHT [facility] : 1945 Age/S: 74 / F [address] [facility] Unit #: [id number] Loc: [place] [address] Phys: Abhishek Lujan MD Acct: [id number] Dis Date: Status: PRE ER PHONE #: [phone] Exam Date: 05/04/2019 1205 FAX #: [phone] Reason: HEADACHE EXAMS: CPT CODE: [id number] CT HEAD/BRAIN W/O CONT 38752 HISTORY: HEADACHE TECHNIQUE: Noncontrast 2.[address] of the head. Examination acquired within 24 hours of arrival. Automated exposure control for dose reduction. COMPARISON: Noncontrast CT brain May 03, 2016 FINDINGS: No lacerations or contusions of the scalp or facial soft tissues. Postsurgical changes of craniotomy and skull base are redemonstrated. No acute hemorrhage. No intracranial mass, mass effect, or midline shift. No effacement of the sulci or weinberg-white matter interface. Microvascular ischemic changes of the white matter are redemonstrated and appear more pronounced from the prior exam. No hydrocephalus.. No extra- axial fluid collection. Visualized paranasal sinuses are clear. Mastoid air cells and middle ear cavities are clear. There is cerumen in the bilateral external auditory canals. Prior lens extraction bilaterally. IMPRESSION: No acute intracranial hemorrhage or mass effect or large vascular territorial infarct. Worsening microvascular ischemic changes of the white matter. Location: [facility] at 1225 Reported and signed by: Cabrera Vanegas MD CC: Abhishek Lujan MD; Franklyn Johnson MD T echnologist:Leonel Franco RT(R),(MR),(CT) CTDI: DLP: Trnscb Date /Time: 05/04/2019 (1225) [email or web address] Orig Print D/T: S: (6431) PAGE 1 Signed Report PROTHROMBIN [id number] 12:17:00* Test Item Value Reference Range Comments PROTHROMBIN TIME PATIENT (test code=PTP) 12.2 seconds 9.0-14.0 INTERNATIONAL NORMAL RATIO (test code=INR) 1.0 0.8-1.2 The therapeutic range for oral anticoagulant therapy formost indications is an international normalized ratio (INR)of between 2.0 and 3.0. The recommended therapeutic INRrange for various clinical situations is listed below: Clinical Situation INR range Pulmonary e mbolism treatment (2.0-3.0)Venous thrombosis treatmentVenous thrombosis prophylaxis (high risk surgery)Prevention of systemic embolism from: Acute myocardial infarction Valvular heart disease Atrial fibrillation Mechanical prosthetic heart valves (2.5-3.5) IS PATIENT ON ANTICOAGULANTS? NTHROMBOPLASTIN TIME [id number] 12:17:00* Test Item Value Reference Range Comments THROMBOPLASTIN TIME PARTIAL (test code=PTT) 32.4 seconds 25.0-36.5 IS PATIENT ON ANTICOAGULANTS? NCBC W/O [id number] 12:05:00* Test Item Value Reference Range Comments WHITE BLOOD CELL (test code=WBC) 7.7 K/mm3 4.5-12.5 RED BLOOD CELL (test code=RBC) 3.03 mill/mm3 3.7-5.2 HEMOGLOBIN (test code=HGB) 8.5 gram/dL 11.5-15.5 HEMATOCRIT (test code=HCT) 28.2 % 36.0-46.0 MEAN CELL VOLUME (test code=MCV) 93.1 fL 80-98 MEAN CELL HGB (test code=MCH) 28.1 picogram 27.0-33.0 MEAN CELL HGB CONCETRATION (test code=MCHC) 30.1 gram/dL 33.0-36.0 RED CELL DISTRIBUTION WIDTH (test code=RDW) 15.4 % 11.6-16.2 PLATELET COUNT (test code=PLT) 224 K/mm3 150-450 MEAN PLATELET VOLUME (test code=MPV) 10.3 fL 6.7-11.0 - XR CHEST 2 [id number] 11:33:00 FAX: Franklyn Gorman MD [phone] [place]: O St: REG FAX: Pernell Rojas MD [phone] Name: SANTOS KNIGHT [facility] : 1945 Age/S: 73/F [place] Unit #: [id number] Loc: [place] [address] Phys: Pernell Oscar MD Acct: [id number] Dis Date: Status: REG CLI PHONE #: [phone] Exam Date: 08/19/2018 1100 FAX #: [phone] Reason: R07.89 EXAMS: CPT CODE: [id number] XR CHEST 2 V 75227 TECHNIQUE - XR CHEST 2 V . COMPARISON: Chest x-ray 07/06/2016 HISTORY: 73 years Female R07.89 FINDINGS: Lungs: No nodules. No air space or interstitial lung disease. Lungs are normal in volume. Mediastinum and amna: No enlargement or other mass. Median sternotomy. Cardiovascular structures: Mild cardiomegaly. No abnormalities in vascular structures. Pleura/CP angles: Clear. No pneumothorax. Bones: No osseous abnormalities. Soft tissues: No abnormalities. Tubes and lines: None. Other: Stent projects superior mediastinum. IMPRESSION: No acute cardiopulmonary abnormalities. Electronically Signed by Alan Snider M.D. on at 1133 Reported and signed by: Alan Snider M.D. CC: Franklyn Johnson MD; Pernell Oscar MD Technologist: Jeff Kent RT(R) Trnscrd Date/Time/By: (1133) : By: Nito Parsons Print D/T: S: 08/19/2018 (1134) PAGE 1 Signed Report ABDOMEN-1VIEW (KUB)2018-07-01 16:31:00 [place] [address] Patient Name: SANTOS KNIGHT MR #: [id number] : 1945 Age/Sex: 73/F Req #: [id number] Adm Physician: Ordered by: GRETCHEN LINDER MD Report #: [id number] Location: Room/Bed: Procedure: [id number] D X/ABDOMEN-1VIEW (KUB) Exam Date: 07/01/18 Exam Time: 1453 REPORT STATUS: Signed Abdo men/KUB INDICATION: [id number] URINARY TRACT INFECTION CO MPARISON: Abdomen x-ray 12/30/2017 FINDINGS: Medical Devices: Loop rec order device situated over the mediastinum. Dual-lead pacemaker wires terminat e in the right atrium and right ventricle. Median sternotomy wires are intact. Cholecystectomy clips are stable. Bowel: Unremarkable bowel gas pattern. No dilated bowel loops. Moderate to large amount of stool in the right colon and moderate amount of stool in the transverse colon. Free air: None Calcifications: None over the renal shadows or along the expected course of the ureters. Two phleboliths in the left pelvis are stable in position. Organ omegaly: None Lung bases: Clear. The heart is enlarged with mild vascular c ongestion Bones: Bilateral hip prostheses are redemonstrated. No evidence o f hardware failure. Mild degenerative changes of the spine are stable. So ft tissues: Calcifications of the vascular structures in the pelvis. IMPRES TOMMY: Large amount of stool. No evidence of bowel obstruction. No radi ographic evidence of renal calculus. Signed by: Dr. Ryder Villalba MD o n 07/01/2018 4:34 PM Dictated By: RYDER VILLALBA MD Electronically Sig barrett By: RYDER VILLALBA MD on 07/01/18 1634 Transcribed By: JUDD on 1634 COPY TO: GRETCHEN LINDER MD RENAL RETROPERITONEAL COMP 2018-07-01 15:04:00 [place] [address] Patient Name: SANTOS KNIGHT MR #: [id number] : 1945 Age/Sex: 73/F Req #: [id number] [facility] Physician: Ordered by: GRETCHEN LINDER MD Report #: [id number] Location: Room/Bed: Procedure: [id number] U S/US RENAL RETROPERITONEAL COMP Exam Date: 07/01/18 Exam Time: 1417 REPORT STATUS: Sign ed EXAM: Renal Ultrasound INDICATION: Urinary tract infection. COMPARISON: None TECHNIQUE: Transverse and longitudinal images of the kidneys and bladder were obtained. FINDINGS: Right Kidney: Length: Measures 10.8 x 4.2 x 4.8 cm Appearance: Normal echogenicity. Collecting system: No hydronephrosis Stones: None Cyst/Mass: No evidence of solid mass. There is an anechoic, simple appearing cyst within the midpole measuring up to 3.6 cm without associated vascular flow. Left Kidney: Length: Measures 10.9 x 4.2 x 5.0 cm Appearance: Normal echogenicity. Collecting system: No hydronephrosis Stones: None Cyst/Mass: None Bladder: Unremarkable in appearance. Bilateral ureteral jets are seen. IMPRESSION: No evidence of hydronephrosis or stone. Simple appearing right mid pole renal cyst. Signed by: Dr. Jeancarlos Pineda MD on 07/01/2018 3:07 PM Dictated By: JEANCARLOS PINEDA MD [id number] Transcribed By: JUDD on 07/01/18 5444 COPY TO: GRETCHEN LINDER MD [facility] NECK 2018-05-05 19:52:00 [place] [address] Patient Name: SANTOS KNIGHT MR #: [id number] : 1945 Age/Sex: 73/F Req #: [id number] Adm Physician: Ordered by: BOBBI HAYWARD MD Report #: [id number] Location: CT Room/Bed: Procedure: [id number]/CTA NECK Exam Date: 05/05/18 Exam Time: 1850 REPORT STATUS: Signed EXAMINATIO N: CT angio of the neck and head with contrast. HISTORY:Chiari type 2 ma lformation, assess carotid artery stenosis. COMPARISON:Report of MRI brain from 04/23/2016, CTA head and neck from 02/06/2016, prior images are not availa ble for comparison at the time of interpretation. TECHNIQUE: Multidetecto r helical axial images were acquired through the neck and head during infusio n of iodinated contrast material. Images were reviewed in multiplanar and 3-di mensional format. Dose modulation, iterative reconstruction, and/or weight ba sed adjustment of the mA/kV was utilized to reduce the radiation dose to as lo w as reasonably achievable. Contrast: 100 mL of Isovue-370 . FINDING S: NECK: If carotid bulb stenosis is present, stenosis is measured with r espect to the distal extracranial internal carotid artery. Aortic arch an d major vessels: Scattered nonstenotic atherosclerotic calcification of the ao rtic arch and at the origin of right brachiocephalic trunk, left common caroti d artery and right subclavian artery. Left subclavian artery stent in place with contrast/flow within the stent, but distal to the stent there is stenosis /occlusion. Distal left subclavian artery is patent arising from the vascula r bypass from left common carotid artery. Common carotid arteries and car otid bulb: Nonstenotic multifocal mixed atherosclerotic plaque in bilateral co mmon carotid artery. Hard atherosclerotic plaque at the site of vascular byp ass surgery between the distal left subclavian and left common carotid artery results in approximately 10% vascular stenosis. Status post left common contreras tid, carotid bifurcation/carotid bulb endarterectomy with patent vessels. Internal carotid arteries: Right: Soft atherosclerotic plaque at the origin of right internal carotid artery without significant vascular stenosis. Hard atherosclerotic plaque in proximal cervical segment of right internal carotid artery approximately 1.2 cm above the bifurcation results in approximately 15% vascular stenosis. Left: Soft atherosclerotic plaque in proximal left internal carotid artery just above the carotid bifurcation results in approximately 50% vascular stenosis. Vertebral arteries: Moderate stenosis at the origin of right vertebral artery due to hard atherosclerotic plaque. Nonstenotic focal hard atherosclerotic plaque in V2 and V4 segment of right vertebral artery. Left vertebral artery originates from the left subclavian artery just distal to the stent and proximal to the occlusion/severe stenosis. Focal nonstenotic hard atherosclerotic plaque in the proximal V4 segment of left vertebral artery HEAD: Internal carotid arteries: Mild atherosclerotic plaque in bilateral carotid siphon. Patent bilateral A1 and M1 segments. Vertebral arteries: Nonstenotic focal hard atherosclerotic plaque in bilateral V4 segme nts. Basilar artery: Patent. Posterior cerebral arteries: Patent. Anatomical variants: Anterior communicating artery :Present Posterior c ommunicating arteries: Patent on right, not visualized on left. Vertebral benjamin maday: Dominant right. Incidental finding: Expected postoperative changes from prior decompressive suboccipital craniectomy for treatment of Chiari malf ormation. Cervical spine: C5-C6: Severe right foraminal stenosis due to f acet and uncovertebral arthrosis. C6-C7: Mild right foraminal stenosis due t o facet and uncovertebral arthrosis. C7-T1: Severe right foraminal stenosis du e to facet and uncovertebral arthrosis. IMPRESSION: 1. Soft a therosclerotic plaque results in approximately 50% vascular stenosis in proxim al left internal carotid artery just above the bifurcation, status post left c ervical carotid bifurcation-carotid bulb endarterectomy with patent vessel. 2. Unchanged moderate stenosis at the origin of right vertebral artery. 3. Mil d atherosclerosis in bilateral carotid siphon. Multifocal scattered nonstenoti c atherosclerotic plaque as detailed above. 4. Left subclavian artery stent wi th distal stenosis; patent left carotid to distal subclavian artery bypass. Signed by: Dr. Yvonne Harkins M.D. on 05/05/2018 9:03 PM Dictated By: YVONNE HARKINS MD 06 Transcribed By: JUDD on 05/05/182102 COPY TO: BOBBI HAYWARD MD CTA [id number] 19:52:00 [facility] [address] [place] [address] Patient Name: SANTOS KNIGHT MR #: [id number] : 1945 Age/Sex: 73/F Req #: [id number] Adm Physician: Ordered by: BOBBI HAYWARD MD Report #: [id number] Location: CT Room/Bed: Procedure: [id number]/CTA BRAIN Exam Date: 05/05/18 Exam Time: 1850 REPORT STATUS: Signed EXAMINATI ON: CT angio of the neck and head with contrast. HISTORY:Chiari type 2 m alformation, assess carotid artery stenosis. COMPARISON:Report of MRI brai n from 04/23/2016, CTA head and neck from 02/06/2016, prior images are not avail able for comparison at the time of interpretation. TECHNIQUE: Multidetect or helical axial images were acquired through the neck and head during infusi on of iodinated contrast material. Images were reviewed in multiplanar and 3-d imensional format. Dose modulation, iterative reconstruction, and/or weight b ased adjustment of the mA/kV was utilized to reduce the radiation dose to as l ow as reasonably achievable. Contrast: 100 mL of Isovue-370 . FINDIN GS: NECK: If carotid bulb stenosis is present, stenosis is measured with respect to the distal extracranial internal carotid artery. Aortic arch a nd major vessels: Scattered nonstenotic atherosclerotic calcification of the a ortic arch and at the origin of right brachiocephalic trunk, left common carot id artery and right subclavian artery. Left subclavian artery stent in place with contrast/flow within the stent, but distal to the stent there is stenosi s/occlusion. Distal left subclavian artery is patent arising from the vascul ar bypass from left common carotid artery. Common carotid arteries and ca rotid bulb: Nonstenotic multifocal mixed atherosclerotic plaque in bilateral c ommon carotid artery. Hard atherosclerotic plaque at the site of vascular by pass surgery between the distal left subclavian and left common carotid artery results in approximately 10% vascular stenosis. Status post left common car otid, carotid bifurcation/carotid bulb endarterectomy with patent vessels. Internal carotid arteries: Right: Soft atherosclerotic plaque at the orig in of right internal carotid artery without significant vascular stenosis. Alex d atherosclerotic plaque in proximal cervical segment of right internal caroti d artery approximately 1.2 cm above the bifurcation results in approximately 1 5% vascular stenosis. Left: Soft atherosclerotic plaque in proximal left inter nal carotid artery just above the carotid bifurcation results in approximately 50% vascular stenosis. Vertebral arteries: Moderate stenosis at the orig in of right vertebral artery due to hard atherosclerotic plaque. Nonstenotic focal hard atherosclerotic plaque in V2 and V4 segment of right vertebral art audrey. Left vertebral artery originates from the left subclavian artery just dis alina to the stent and proximal to the occlusion/severe stenosis. Focal nonsteno tic hard atherosclerotic plaque in the proximal V4 segment of left vertebral a rtery HEAD: Internal carotid arteries: Mild atherosclerotic plaque i n bilateral carotid siphon. Patent bilateral A1 and M1 segments. Vertebra l arteries: Nonstenotic focal hard atherosclerotic plaque in bilateral V4 segm ents. Basilar artery: Patent. Posterior cerebral arteries: Patent. Anatomical variants: Anterior communicating artery :Present Posterior communicating arteries: Patent on right, not visualized on left. Vertebral art eries: Dominant right. Incidental finding: Expected postoperative changes from prior decompressive suboccipital craniectomy for treatment of Chiari mal formation. Cervical spine: C5-C6: Severe right foraminal stenosis due to facet and uncovertebral arthrosis. C6-C7: Mild right foraminal stenosis due to facet and uncovertebral arthrosis. C7-T1: Severe right foraminal stenosis d ue to facet and uncovertebral arthrosis. IMPRESSION: 1. Soft atherosclerotic plaque results in approximately 50% vascular stenosis in proxi mal left internal carotid artery just above the bifurcation, status post left cervical carotid bifurcation-carotid bulb endarterectomy with patent vessel. 2. Unchanged moderate stenosis at the origin of right vertebral artery. 3. Mi ld atherosclerosis in bilateral carotid siphon. Multifocal scattered nonstenot ic atherosclerotic plaque as detailed above. 4. Left subclavian artery stent w ith distal stenosis; patent left carotid to distal subclavian artery bypass. Signed by: Dr. Yvonne Harkins M.D. on 05/05/2018 9:03 PM Dictated By: YVONNE HARKINS MD 2 103 Transcribed By: JUDD on 05/05/182102 COPY TO: WEDNESDAYBOBBI ABDOMEN-1VIEW (KUB)2017-12-30 15:04:00 [place] [address] Patient Name: SANTOS KNIGHT MR #: [id number] : 1945 Age/Sex: 72/F Req #: [id number] Adm Physician: Ordered by: GRETCHEN LINDER MD Report #: [id number] Location: [facility] Room/Bed: Procedure: [id number] DX/ABDOMEN-1VIEW (KUB) Monie maguire Date: 12/30/17 Exam Time: 1440 REPORT STATUS: Signed EXAMINATION: ABDOMEN-1VIEW (KUB) INDICATION: Renal calculus COMPARISON: KUB 03/02/2017. FINDINGS: There is a nonobstructive bowel gas pattern. No evidence of free intraperitoneal air. There are no ab normal calcifications projecting over the expected location of the kidneys, ur eters, or bladder. Status post cholecystectomy. No acute bony findings. Par tially visualized bilateral total hip arthroplasties. IMPRESSION: No acute radiographic abnormality. No evidence of stone. Signed by: Dr. Abelardo Pineda MD on 12/30/2017 3:24 PM Dictated By: JEANCARLOS PINEDA MD 23 Transcribed By: JUDD on 12/30/171523 COPY TO: GRETCHEN LINDER MD ABDOMEN-1VIEW (KUB) [place] [address] Patient Name: SANTOS KNIGHT MR #: [id number] : 1945 Age/Sex: 72/F Req #: [id number] Adm Physician: Ordered by: GRETCHEN LINDER MD Report #: [id number] Location: [facility] Room/Bed: Procedure: [id number] DX/ABDOMEN-1VIEW (KUB) Exa m Date: 03/02/17 Exam Time: 1605 REPORT STATUS: Signed PROCEDURE: X-RAY ABDOMEN - KUB COMPARISON: CT, CT ABDOMEN W , 03/18/2012, 13:47. INDICATIONS: CYST OF KIDNEY FINDINGS: Nonob structive bowel gas pattern with mild amount of retained stool.. No calcifi cations project over the renal shadows, expected course of the ureters or michael dder. Vascular calcifications in the pelvis and left upper quadrant, likely in the splenic and renal arteries. Cholecystectomy clips. No acute bony abn ormalities. Degenerative changes in the lower lumbosacral spine. Bilateral partially visualized hip replacement hardware CONCLUSION: No abnormal calcifications project over the renal shadows, expected course of the ureters or bladder. Pablo Shields M.D. Dictated by: Pablo Shields M.D. on 03/02/2017 at 16:59 Electronically approved by: Pablo welch M.D. on 03/02/2017 at 16:59 Dictated By: PABLO Olivo 58 Transcribed By: KEATON on 03/02/171658 COPY TO: GRETCHEN LINDER MD
--- OUTSIDE RECORDS SUMMARY | 2019-06-06 15:23 | XMS REPORT | Summary of Care ---
Author Author Jaylon Hutton M.A. Unknown Address [facility] Phone Unavailable Care Team Providers Care Marine Tower Operator Name Role Phone CARLOS Azlu, ARIANNA Unavailable Unavailable GEREMIAS REDD MD Unavailable Unavailable CARLOS FLORENCE GA, ARIANNA Anderson Unavailable Unavailable Unavailable Unavailable Functional Status Name Dates Details Functional status health issues are not documented Status: Name Dates Details Cognitive status health issues are not documented Status: Problems Name Dates Details Follow-up exam (V67.9, Z09) Status: Active Limb pain (729.5, M79.609) Status: Active Hip pain associated with recalled total hip arthroplasty hardware, initial encounter (996.77, T84.84XA) Status: Active Hip pain, right (719.45, M25.551) Status: Active Artificial joint pain, initial encounter (996.77, T84.84XA) Status: Active Medications Name Dates Details Folic Acid 1 MG Oral Tablet TAKE 1 TABLET DAILY. Active Omeprazole 40 MG Oral Capsule Delayed Release TAKE 1 CAPSULE TWICE DAILY * Quantity: 180 Refills: 1 Active Crestor 40 MG Oral Tablet TAKE 1 TABLET DAILY. * Refills: 0 Active Ecotrin Low Strength 81 MG Oral Tablet Delayed Release * Refills: 0 Active Fish Oil CAPS * Refills: 0 Active Fiber CAPS * Refills: 0 Active Labetalol HCl TABS * Refills: 0 Active Cozaar 50 MG Oral Tablet * Refills: 0 Active Folic Acid CAPS * Refills: 0 Active Plavix 75 MG Oral Tablet * Refills: 0 Active Calcium TABS * Refills: 0 Active amLODIPine Besylate 10 MG Oral Tablet * Refills: 0 Active raNITIdine HCl - 300 MG Oral Tablet * Refills: 0 Active Iron TABS * Refills: 0 Active Diclofenac Sodium 1 % Transdermal Gel APPLY TO LOWER EXTREMITIES, 4 GM OF GEL TO AFFECTED AREA 4 TIMES DAILY. DO NOT APPLY MORE THAN 16 GM DAILY TO ANY ONE AFFECTED JOINT. * Quantity: 5 Refills: 3 ARIANNA GONZALEZ M.D. * Start : 23-Jun-2017 Active 100 GM Tube Allergies and Adverse Reactions Name Dates Details Meloxicam TABS (Allergy) Status: Active Penicillins (Allergy) Status: Active Sulfa Drugs (Allergy) Status: Active Past Medical History Name Dates Details History of aortic aneurysm (V12.59, Z86.79) Status: Resolved History of aortic valve insufficiency (V12.59, Z86.79) Status: Resolved History of Bright Red Blood Per Rectum Status: Resolved History of carotid artery stenosis (V12.59, Z86.79) Status: Resolved History of Chiari malformation type II (741.00, Q07.00) Status: Resolved History of chronic bronchitis (V12.69, Z87.09) Status: Resolved History of Coronary Artery Disease (V12.59) Status: Resolved History of Crohn's disease (555.9, K50.90) Status: Resolved History of essential hypertension (V12.59, Z86.79) Status: Resolved History of hyperlipidemia (V12.29, Z86.39) Status: Resolved History of mitral valve prolapse (V12.59, Z86.79) Status: Resolved History of Stroke syndrome Status: Resolved Procedures Procedure Dates Details History of Breast Lumpectomy Lesion No. Completed History of Hysterectomy Completed History of Cataract Surgery Completed History of Hip Surgery Completed History of Ascending Aortic Aneurysm Repair With Graft Completed History of Endarterectomy Carotid Artery Completed Immunization Name Dates Details Immunizations not documented Family History Name Dates Details Family history of Aortic Dissection Repair Comments: Family History Status: Active Name Dates Details Family history of hypertension (V17.49, Z82.49) Status: Active Family history of hyperlipidemia (V18.19, Z83.438) Status: Active Name Dates Details Family history of cerebrovascular accident (CVA) (V17.1, Z82.3) Status: Active Family history of hypertension (V17.49, Z82.49) Status: Active Family history of hyperlipidemia (V18.19, Z83.438) Status: Active Social History Name Dates Details - Status: Name Dates Details Former smoker Vital Signs Date Test Result Details No Known Vitals to report Results Date Description Value Details Results not documented Plan of Care Name Dates Details Planned Observations Planned Goals not documented Planned Encounters Pain Management Referral Instructions Name Dates Details Instructions not documented Encounters Appointment; ARIANNA GONZALEZ M.D. Encounter Diagnosis: Problem not documented On: 23-Jun-2017 10:00 Appointment; ARIANNA GONZALEZ M.D. Encounter Diagnosis: Problem not documented On: 07-Jul-2017 14:15 Appointment; ARIANNA GONZALEZ M.D. Encounter Diagnosis: Problem not documented On: 05-Jan-2018 16:15 Appointment; ARIANNA GONZALEZ M.D. Encounter Diagnosis: Problem not documented On: 20-Apr-2018 9:30 Appointment; ARIANNA GONZALEZ M.D. Encounter Diagnosis: Problem not documented On: 04-May-2018 11:30 Appointment; ARIANNA GONZALEZ M.D. Encounter Diagnosis: Problem not documented On: 21-Jul-2018 14:15
[2019-06-06] MEDS ORDERED: ONDANSETRON HCL INJ 2MG/ML 2ML 2 MG/ML VIAL IV STA (15:28)
--- NOTE | 2019-06-06 15:39 | NUR ---
PT ARRIVED POV W/FM. PT WAS AT [facility] AND FM WORRIED FOR PT'S LIFE AND TOOK PT TO DR DAVIDSON (PCP/CARDIO) AND WAS SENT TO ER STAT. PT ARRIVED DIAPHORETIC, PALE, WEAK. STAT TO ROOM 7 WITH RN'S AND MD. SEPTIC WORK UP BEING DONE. PT REMAINS AWAKE AAOX4. PT IS VERY PALE, STATES HX OF ANEMIA AND SEE'S DR WANG. NO HX OF CANCER PER PT. PT AND FM UPDATED OF PLAN OF CARE.
[2019-06-06 15:46] LABS: BASOPHILS # (AUTO) 0.1 (0.0-0.1); BASOPHILS % 0.2 % (0.0-1.0); HEMATOCRIT 31.5 % (34.2-44.1); HEMOGLOBIN 10.1 g/dL (12.0-16.0); LYMPHOCYTES # (AUTO) 1.3 (1.0-3.2); LYMPHOCYTES % 4.4 % (18.0-39.1); MEAN CORPUSCULAR HEMOGLOBIN 27.9 pg (28-32); MEAN CORPUSCULAR HGB CONC 32.1 g/dL (31-35); MONOCYTES # (AUTO) 0.8 (0.2-0.8); MONOCYTES % 2.7 % (4.4-11.3); NEUTROPHILS # (AUTO) 27.2 (2.1-6.9); NEUTROPHILS % 91.7 % (38.7-80.0); PLATELET COUNT 572 x10e3/uL (140-360); RED BLOOD COUNT 3.62 x10e6/uL (3.6-5.1)
--- NOTE | 2019-06-06 15:47 | NUR ---
ARRIVED WITH TEMPORARY SPLINT ON RIGHT LOWER LEG FROM KNEE TO FOOT. CAP REFILL < 2 SECONDS. STATES PLACED ON AT [facility]. FELL BROKE LEG AND WENT TO SNIFF THEN [facility]. PT REPORTS ONE P.T. SESSION AND ONE ORTHO VISIT SINCE ER.
[2019-06-06 15:53] LABS: INR 0.96; PROTHROMBIN TIME 13.4 seconds (11.9-14.5)
[2019-06-06 15:57] LABS: CLARITY,URINE CLEAR (CLEAR); COLOR,URINE YELLOW (YELLOW); KETONES,URINE NEGATIVE (NEGATIVE); LEUKOCYTE ESTERASE ,URINE NEGATIVE (NEGATIVE); NITRITE,URINE NEGATIVE (NEGATIVE); PROTEIN,URINE DIPSTICK NEGATIVE (NEGATIVE)
[2019-06-06 15:58] LABS: BILIRUBIN,URINE NEGATIVE (NEGATIVE); URINE UROBILINOGEN 0.2 mg/dL (0.2 - 1)
[2019-06-06] MEDS ORDERED: ACETAMINOPHEN 325 MG TAB PO ONE (16:00)
[2019-06-06 16:03] LABS: ALBUMIN 3.6 g/dL (3.5-5.0); ALBUMIN/GLOBULIN RATIO 0.9 (0.8-2.0); ANION GAP 18.9 mmol/L (8-16); CALCIUM 8.9 mg/dL (8.4-10.2); CREATININE, SERUM 1.79 mg/dL (0.57-1.11)
[2019-06-06 16:10] LABS: EPITHELIAL CELLS,URINE RARE /LPF; WBC,URINE (MAN) 0-5 /HPF (0-5)
[2019-06-06 16:11] LABS: POTASSIUM 2.9 mmol/L (3.5-5.1)
[2019-06-06 16:12] LABS: B-TYPE NATRIURETIC PEPTIDE2 106.2 pg/mL (0-100)
[2019-06-06] MEDS: LEVOFLOXACIN 750MG/D5W 150ML 150 ML IV SCH (16:19)
[2019-06-06] MEDS ORDERED: POTASSIUM CHLORIDE 10MEQ EA PO STA (16:20)
[2019-06-06] MEDS ORDERED: POTASSIUM CHLORIDE 10MEQ/100ML 100 ML IV STA (16:20)
--- NOTE | 2019-06-06 17:26 | Diagnostic Imaging Report ---
EXAM: CT Abdomen and Pelvis WITHOUT intravenous contrast INDICATION: Abdominal pain COMPARISON: None. TECHNIQUE: Abdomen and pelvis were scanned utilizing a multidetector helical scanner from the lung base to the pubic symphysis without administration of IV contrast. Coronal and sagittal reformations were obtained. IV CONTRAST: None ORAL CONTRAST: Water COMPLICATIONS: None RADIATION DOSE: Total DLP: 472 mGy*cm Dose modulation, iterative reconstruction, and/or weight based adjustment of the mA/kV was utilized to reduce the radiation dose to as low as reasonably achievable. FINDINGS: LOWER THORAX: Normal. HEPATOBILIARY: 1.6 cm right hepatic hypodensity, likely a cyst. No other focal liver lesions. No biliary ductal dilation. Status post cholecystectomy. SPLEEN: No splenomegaly. PANCREAS: Fatty atrophy. No focal mass or ductal dilation. ADRENALS: No adrenal nodules. KIDNEYS/URETERS: 4 mm nonobstructive right upper pole renal calculus. 2 mm nonobstructive left midpole renal calculus. 3.2 cm right upper pole renal cyst. No hydronephrosis or hydroureter. PELVIC ORGANS/BLADDER: Rich catheter in place. Evaluation limited by severe streak artifact related to bilateral total hip replacement. PERITONEUM / RETROPERITONEUM: No free air or fluid. LYMPH NODES: No lymphadenopathy. VESSELS: Heavy diffuse atherosclerotic calcifications of the nonaneurysmal abdominal aorta and major branches. GI TRACT: No abnormal bowel thickening. No bowel obstruction. BONES AND SOFT TISSUES: No acute osseous injury. No suspicious lytic or blastic lesions. IMPRESSION: Right and left nonobstructive renal calculi. No hydronephrosis. Signed by: Haylie Sena MD on 06/06/2019 5:23 PM
--- NOTE | 2019-06-06 17:31 | Diagnostic Imaging Report ---
EXAMINATION: CHEST 2 VIEWS INDICATION: Hypotension, vomiting COMPARISON: None FINDINGS: LINES/TUBES:Left chest pacer. Loop recorder device. LUNGS:The lungs are well-inflated. No focal pneumonia or ean pulmonary edema. Mild central pulmonary vascular congestion. PLEURA:No pleural effusion or pneumothorax. MEDIASTINUM:The cardiomediastinal silhouette appears mildly enlarged. Left subclavian vascular stent. BONES/SOFT TISSUES:No acute osseous injury. Median sternotomy wires intact. ABDOMEN:No free air under the diaphragm. IMPRESSION: Mild central pulmonary vascular congestion without ean pulmonary edema. No focal pneumonia. Signed by: Haylie Sena MD on 06/06/2019 5:28 PM
--- NOTE | 2019-06-06 17:42 | NUR ---
Attempted to start another IV, two failed IV attempts.
[2019-06-06] MEDS ORDERED: PIPER-TAZ 3.375 GM 50 ML IV SCH (18:00)
--- NOTE | 2019-06-06 18:54 | NUR ---
report given to Mart DENNY
[2019-06-06] MEDS: SODIUM CHLORIDE 0.9% 1000ML 1,000 ML IV SCH (19:05)
[2019-06-06] MEDS ORDERED: LABETALOL HCL200 MG PO (21:01)
[2019-06-06] MEDS ORDERED: FAMOTIDINE40 MG PO (21:01)
[2019-06-06] MEDS ORDERED: PROCRIT20000 UNIT SQ (21:01)
[2019-06-06] MEDS ORDERED: METAMUCIL0.4 GM PO (21:01)
[2019-06-06] MEDS ORDERED: GABAPENTIN300 MG PO (21:01)
[2019-06-06] MEDS ORDERED: iron PO (21:01)
[2019-06-06] MEDS ORDERED: AMLODIPINE BES2.5 MG PO (21:01)
[2019-06-06] MEDS ORDERED: NITROGLYCERIN1 EAC1 TOP (21:01)
[2019-06-06] MEDS ORDERED: ESCITALOPRAM OXA5 MG PO (21:01)
[2019-06-06] MEDS ORDERED: CREON DR 24,001 EACH PO (21:01)
[2019-06-06] MEDS ORDERED: OMEPRAZOLE40 MG PO (21:01)
[2019-06-06] MEDS ORDERED: ROSUVASTATIN CA40 MG PO (21:01)
[2019-06-06] MEDS ORDERED: CLOPIDOGREL75 MG PO (21:01)
[2019-06-06] MEDS ORDERED: LOSARTAN POTAS100 MG PO (21:01)
[2019-06-06] MEDS ORDERED: CLONIDINE HCL0.3 MG PO (21:01)
[2019-06-06 22:37] VITALS: BP 106/48
[2019-06-06 22:41] VITALS: BP 106/48
[2019-06-06 22:43] VITALS: BP 106/48
[2019-06-07] VITALS (8 sets, daily range): BP systolic 87–140; BP diastolic 48–63
[2019-06-07] MEDS: SODIUM CHLORIDE 0.9% 1000ML 1,000 ML IV SCH ×4 (03:30→23:23)
[2019-06-07] MEDS ORDERED: PANTOPRAZOLE 40 MG 10ML VIAL IV STA (04:22)
[2019-06-07] MEDS ORDERED: PANTOPRAZOLE INJ 40 MG in SODIUM CHLORIDE 0.9% 50ML 50 ML IV SCH (04:30)
[2019-06-07] MEDS ORDERED: PANTOPRAZOL IV SCH (04:45)
[2019-06-07] MEDS ORDERED: [UNRECOGNIZED DRUG - OTHER] IV SCH (04:45)
[2019-06-07] MEDS ORDERED: SODIUM CHLORIDE 0.9% IV SCH (04:45)
--- NOTE | 2019-06-07 05:00 | NUR ---
PATIENT FOUND TO HAVE BOWEL MOVEMENT BLACK IN COLOR WITH VISIBLE RED BLOOD MIXED IN THE LOOSE STOOL. CALLED DR. JOSEPH TO NOTIFY WAS ORDERED TO GET GI CONSULT WITH DR. BLAND AND STOOL SAMPLE. NOTIFIED DR BLAND OF CONSULT AND ORDERED TO GIVE 80MG IV BOLUS OF PROTONIX WELL START A DRIP OF PROTONIX AT 8MG/HR CONTINUOUS, CHECK PATIENT'S PT/INR AND CBC. WILL CONT TO MONITOR.
[2019-06-07 05:26] LABS: BASOPHILS % 0.2 % (0.0-1.0); EOSINOPHILS % 0.2 % (0.0-6.0); HEMATOCRIT 23.8 % (34.2-44.1); HEMOGLOBIN 7.6 g/dL (12.0-16.0); LYMPHOCYTES # (AUTO) 0.8 (1.0-3.2); LYMPHOCYTES % 4.5 % (18.0-39.1); MEAN CORPUSCULAR HEMOGLOBIN 27.9 pg (28-32); MEAN CORPUSCULAR HGB CONC 31.9 g/dL (31-35); MEAN CORPUSCULAR VOLUME 87.5 fL (81-99); MONOCYTES # (AUTO) 0.6 (0.2-0.8); MONOCYTES % 3.1 % (4.4-11.3); NEUTROPHILS # (AUTO) 16.4 (2.1-6.9); NEUTROPHILS % 91.2 % (38.7-80.0); PLATELET COUNT 300 x10e3/uL (140-360); RED BLOOD COUNT 2.72 x10e6/uL (3.6-5.1); RED CELL DISTRIBUTION WIDTH 14.7 % (11.7-14.4)
[2019-06-07 05:37] LABS: INR 1.09; PROTHROMBIN TIME 14.8 seconds (11.9-14.5)
[2019-06-07] MEDS ORDERED: SODIUM CHLORIDE 0.9% 250ML 500 ML ONE (05:47)
[2019-06-07 05:52] LABS: CREATINE KINASE MB 4.2 ng/mL (0-5.0)
[2019-06-07 06:11] LABS: ALBUMIN 2.6 g/dL (3.5-5.0); ALBUMIN/GLOBULIN RATIO 0.9 (0.8-2.0); ALKALINE PHOSPHATASE 63 IU/L (40-150); ANION GAP 10.8 mmol/L (8-16); BLOOD UREA NITROGEN 18 mg/dL (7-26); BUN/CREATININE RATIO 17 (6-25); CALCIUM 7.3 mg/dL (8.4-10.2); CARBON DIOXIDE 21 mmol/L (22-29); CHLORIDE 107 mmol/L (98-107); CREATININE, SERUM 1.07 mg/dL (0.57-1.11); EST GLOMERULAR FILTRATION RATE 50 ML/MIN (60-); GLUCOSE 102 mg/dL (74-118); SODIUM 136 mmol/L (136-145)
[2019-06-07 06:12] LABS: ALANINE AMINOTRANSFERASE < 6 IU/L (0-55)
[2019-06-07 06:13] LABS: POTASSIUM 2.8 mmol/L (3.5-5.1)
--- NOTE | 2019-06-07 06:45 | NUR ---
CALLED AND NOTIFIED DR. BLAND OF PATIENTS HGB 7.6 AND POTASSIUM 2.8. ORDERED TO RECHECK HH AT 10AM AND PUT 2 UNITS OF BLOOD ON HOLD TO GIVE IF CONTINUES TO DROP, MAKE PATIENT NPO AND GET CONSENT FOR EGD. CONSENTS FOR BLOOD AND EGD COMPLETED. NOTIFIED PTS DAUGHTER PER REQUEST AND SUBMITTED ORDERS.
[2019-06-07] MEDS ORDERED: SODIUM CHLORIDE 0.9% 250ML 250 ML IV ONE (07:00)
--- NOTE | 2019-06-07 09:00 | NUR ---
The pt. c/o pain in the fractured ankle and DR. Yusuf was notified. Order received for tylenol tabs and the drFelicia will be in later.
[2019-06-07] MEDS: PANTOPRAZOL 40MG/SOD CHL 0.9% 50 ML IV SCH ×4 (09:03→23:09)
[2019-06-07] MEDS ORDERED: ACETAMINOPHEN 325 MG TAB PO PRN (09:15)
[2019-06-07] MEDS ORDERED: EPOETIN ALFA 20000 UNIT SQ SCH (10:30)
--- NOTE | 2019-06-07 10:30 | NUR ---
H&H resulted and is maintained @7.8. The pt is scheduled for EGD this pm.
[2019-06-07 10:45] LABS: HEMATOCRIT 24.9 % (34.2-44.1); HEMOGLOBIN 7.8 g/dL (12.0-16.0)
[2019-06-07] MEDS ORDERED: PROMETHAZINE HCL 25 MG TAB PO PRN (10:45)
[2019-06-07] MEDS ORDERED: DIPHENHYDRAMINE HCL 25 MG CAP PO PRN (10:45)
[2019-06-07] MEDS ORDERED: POTASSIUM CHLORIDE 20 MEQ TAB CR PO ONE (11:45)
[2019-06-07] MEDS: NITROGLYCERIN 0.3 MG/HR PATCH TD SCH (12:00)
[2019-06-07 12:07] LABS: CREATINE KINASE MB 6.8 ng/mL (0-5.0)
[2019-06-07] MEDS ORDERED: PROPOFOL IV EMULSION 10 MG/ML 20 ML VIAL ONE (14:03)
--- NOTE | 2019-06-07 16:30 | NUR ---
The pt. is in the room sp EGD and is awake and alert. She continues to have black liquid stools post procedure, He vs are completed and iv antibiotic given.
--- NOTE | 2019-06-07 16:53 | History and Physical ---
Ms. Olea is a charming and very complex 74-year-old woman, known to me from past evaluations, who was sent to the emergency room from the office where she was found to be hypotensive. HISTORY OF PRESENT ILLNESS: The patient has been in [facility] since her [facility] on May 30, after she fell and broke her right fibula. She reports that she has had some anorexia and nausea since being in the hospital and has refused to eat food. PAST MEDICAL HISTORY: Long and complex with multiple surgical procedures including ascending aortic arch repair by Dr. Tony in 2010. The operative note does not include any valve work. She has had left carotid to subclavian bypass after left subclavian stent was occluded. She has had right carotid endarterectomy, hysterectomy, cholecystectomy, C-spine surgery for Chiari malformation, and she had [employer] pacemaker implanted in July 2016. She had a right fibular fracture on May 23, 2019. MEDICATIONS: Recent home medications have included folic acid 1 mg daily, aspirin 81 mg daily, Clopidogrel 75 mg daily, Crestor 40 mg daily, Lasix 40 mg once a day, amlodipine 10 mg half tablet daily, losartan 100 mg daily, labetalol 200 mg twice a day, Procrit injections, Nitro-Dur Patch 0.1, tramadol, meclizine, escitalopram 5 mg daily, Tylenol p.r.n., gabapentin 200 mg daily, and iron tablets. PHYSICAL EXAMINATION: GENERAL: At this time shows a pleasant, alert woman, who seems uncomfortable. She is alert and responsive. VITAL SIGNS: Blood pressure 121/55, pulse 100 and irregular. HEAD, EYES, EARS, NOSE, AND THROAT: Unremarkable. NECK: Shows the healed right carotid incision. THORAX: There is healed midline sternotomy. Faint systolic murmur. Healed left pacemaker subclavian site. LUNGS: Clear. ABDOMEN: Protuberant. Normal bowel sounds. Nontender. EXTREMITIES: Show the right ankle in splint. ASSESSMENT: 1. Hypotension, likely secondary to #2. 2. Gastrointestinal bleeding, probably stress ulcer. 3. History of hypertension. 4. Vascular disease, diffuse. 5. Intermittent atrial fibrillation. 6. Chronic anemia. PLAN: The patient has been given broad-spectrum antibiotics and will monitor blood pressure and hemoglobin and hematocrit. We will withhold her blood pressure medications for the present. Prognosis is guarded. MD KISHAN Merida/[place] /[id number] cc: MD Pernell Gannon MD Maurice S Haddad, MD
[2019-06-07 16:58] LABS: FERRITIN 517.84 ng/mL (4.63-204.00)
[2019-06-07] MEDS ORDERED: PANTOPRAZOLE SOD 40 MG TABEC PO SCH (17:00)
[2019-06-07] MEDS: NORTRIPTYLINE HCL 25 MG CAP PO SCH (17:38)
[2019-06-07] MEDS: LEVOFLOXACIN 750MG/D5W 150ML 150 ML IV SCH (17:38)
[2019-06-07] MEDS: BUDESONIDE/FORMOTEROL 160/4.5MCG INHALER INH SCH (18:30)
--- NOTE | 2019-06-07 18:58 | NUR ---
Report to the oncoming nurse.
--- NOTE | 2019-06-07 19:23 | Operative Report ---
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 INDICATIONS FOR EGD: Anemia, history of melena. MEDICATIONS: The patient was done under MAC, please see anesthesiologist's note. PROCEDURE IN DETAIL: With the patient in the left lateral decubitus position, the flexible fiberoptic Olympus gastroscope was introduced into the esophagus under direct visualization without any difficulty. The esophagus appeared to be within normal limits. The scope was then advanced with ease into the stomach traversing a small sliding hiatal hernia. Mucosa overlying the antrum and the body revealed some patchy areas of erythema. Pylorus was of normal contour and shape, was intubated with ease and the scope was advanced all the way to the second portion of the duodenum. Minute AVM was noted in the proximal second portion of the duodenum and that was fulgurated with size 7-Tamazight Gold Probe. The scope was then withdrawn back into the stomach and retroflexed, and previously described hiatal hernia was also noted in the retroflexed position. The scope was then straightened out, it was subsequently withdrawn, and the patient tolerated the procedure well. IMPRESSION: 1. Normal esophagus. 2. Small sliding hiatal hernia. 3. Gastritis, mild. 4. 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 PLAN: Follow H and H. We will get a GI bleed scan. If negative, the patient will need a colonoscopy. Ryan Woods MD [facility] /[id number] cc: Nicola Yusuf MD
[2019-06-07] MEDS: GABAPENTIN 300 MG CAP PO SCH (20:17)
--- NOTE | 2019-06-07 23:15 | Diagnostic Imaging Report ---
Tagged-RBC GI Bleed Study Clinical information: 74-year-old female with anemia and melena. Discussion: The patient's own red blood cells were labeled with 25.5 mCi of technetium-99m pertechnetate using the in vitro method (UltraTag). Dynamic images of the abdomen were obtained through 60 minutes. Distribution of tracer activity appears physiologic throughout the abdomen. No abnormal accumulation of tracer is seen within the gastrointestinal lumen. Impression: No scan evidence of active gastrointestinal bleeding at this time. Signed by: Dr. Holly Flannery M.D. on 06/07/2019 11:12 PM
[2019-06-08] VITALS (8 sets, daily range): BP systolic 111–166; BP diastolic 39–81
--- NOTE | 2019-06-08 02:49 | NUR ---
Dr Lincoln Woods gave verbal orders he will do colonoscopy on Wednesday and start Go-lytely at 2 pm today. orders carried on.
[2019-06-08] MEDS: PANTOPRAZOL 40MG/SOD CHL 0.9% 50 ML IV SCH ×4 (04:51→19:00)
[2019-06-08 05:38] LABS: BASOPHILS % 0.2 % (0.0-1.0); EOSINOPHILS # (AUTO) 0.1 (0.0-0.4); EOSINOPHILS % 0.5 % (0.0-6.0); HEMATOCRIT 24.3 % (34.2-44.1); HEMOGLOBIN 7.5 g/dL (12.0-16.0); LYMPHOCYTES # (AUTO) 0.6 (1.0-3.2); LYMPHOCYTES % 4.7 % (18.0-39.1); MEAN CORPUSCULAR HEMOGLOBIN 27.6 pg (28-32); MEAN CORPUSCULAR HGB CONC 30.9 g/dL (31-35); MEAN CORPUSCULAR VOLUME 89.3 fL (81-99); MONOCYTES # (AUTO) 0.5 (0.2-0.8); MONOCYTES % 3.6 % (4.4-11.3); NEUTROPHILS # (AUTO) 11.9 (2.1-6.9); NEUTROPHILS % 90.1 % (38.7-80.0); PLATELET COUNT 281 x10e3/uL (140-360); RED BLOOD COUNT 2.72 x10e6/uL (3.6-5.1); RED CELL DISTRIBUTION WIDTH 14.9 % (11.7-14.4)
[2019-06-08 06:07] LABS: ANION GAP 10.2 mmol/L (8-16); BLOOD UREA NITROGEN 8 mg/dL (7-26); BUN/CREATININE RATIO 10 (6-25); CALCIUM 7.5 mg/dL (8.4-10.2); CARBON DIOXIDE 20 mmol/L (22-29); CHLORIDE 112 mmol/L (98-107); CREATININE, SERUM 0.83 mg/dL (0.57-1.11); EST GLOMERULAR FILTRATION RATE > 60 ML/MIN (60-); GLUCOSE 90 mg/dL (74-118); POTASSIUM 3.2 mmol/L (3.5-5.1); SODIUM 139 mmol/L (136-145)
[2019-06-08] MEDS: BUDESONIDE/FORMOTEROL 160/4.5MCG INHALER INH SCH ×2 (06:55→19:35)
[2019-06-08] MEDS: NITROGLYCERIN 0.3 MG/HR PATCH TD SCH (09:00)
[2019-06-08] MEDS ORDERED: SODIUM BICARBONATE 650 MG TAB PO ONE (10:30)
[2019-06-08] MEDS ORDERED: POTASSIUM CHLORIDE 20MEQ/15ML UDC NG ONE (10:30)
[2019-06-08] MEDS: NORTRIPTYLINE HCL 25 MG CAP PO SCH ×2 (11:35→17:37)
[2019-06-08] MEDS ORDERED: PEG (High)/E-LYTE SOLN 4,000 ML BTL PO ONE (14:00)
[2019-06-08] MEDS: SODIUM CHLORIDE 0.9% 1000ML 1,000 ML IV SCH ×2 (14:39→18:08)
--- NOTE | 2019-06-08 16:27 | Diagnostic Imaging Report ---
EXAMINATION: ANKLE 3 + VIEWS RIGHT INDICATION: Trauma COMPARISON: None FINDINGS: Mildly displaced distal fibular fracture. No other acute fractures identified. The ankle mortise remains intact and symmetric. Fracture line is obscured by overlying splint material. Mild degenerative changes at the midfoot. Soft tissues appear unremarkable. IMPRESSION: Mildly displaced distal fibular fracture. Signed by: Haylie Sena MD on 06/08/2019 4:25 PM
[2019-06-08 17:18] LABS: HEMOGLOBIN 7.5 g/dL (12.0-16.0)
[2019-06-08] MEDS: LEVOFLOXACIN 750MG/D5W 150ML 150 ML IV SCH (17:37)
--- NOTE | 2019-06-08 19:00 | NUR ---
Report received from Claudia PEOPLES. Care plan reviewed. 2 units PRBCs to transfuse and need to obtain consent for colonoscopy.
--- NOTE | 2019-06-08 19:30 | NUR ---
Report given to Jen PEOPLES. Gave per print outs to waste picker 2 units PRBCs for transfusion and prepared colonoscopy consent that requires pt signature.
--- NOTE | 2019-06-08 20:00 | NUR ---
pt received. pt assessed. no ss of distress noted. no co pain at time. tele in place. bm noted pt cleaned and repositioned. nunez draining to gravity. will cont to follow poc. call marques within reach.
[2019-06-08] MEDS ORDERED: SODIUM CHLORIDE 0.9% 250ML 250 ML IV SCH (20:15)
--- NOTE | 2019-06-08 20:40 | NUR ---
blood initiated at time per orders. x2 nurse verification. pt tolerating well. no ss of reaction or distress noted. nurse in rm first 15 min. bm noted and pt cleaned at time. call marques within reach.
[2019-06-08] MEDS: GABAPENTIN 300 MG CAP PO SCH (21:49)
--- NOTE | 2019-06-08 21:49 | NUR ---
consent signed at time for procedure per orders. no distress noted. call marques within reach.
--- NOTE | 2019-06-08 23:44 | Consultation ---
DATE OF CONSULTATION: 06/08/2019 CONSULTATION REQUESTED BY: Nicola Yusuf MD CONSULTING PHYSICIAN: Gabriel Palumbo MD REASON FOR CONSULTATION: Anemia. HISTORY OF PRESENT ILLNESS: Thank you very kindly Dr. Yusuf for letting me participate in the care of this very pleasant 74-year-old female, who is known to me from prior office followup. She has been under my care for anemia since the late 2017. She had anemia with decreased EGFR and had some response to recombinant erythropoietin initially and subsequently appeared to be resistant to treatment with it. A bone marrow biopsy revealed a low-grade myelodysplastic syndrome. She subsequently did respond to more frequent dosing off recombinant erythropoietin. However, the responses had always been relatively modest, but she had managed to stay without requiring a transfusion over the last couple of years. She has not been able to receive her recombinant erythropoietin injections for the last two months as she fell and injured her foot and had been in and out of the hospitals. She was admitted with anemia and positive stool guaiac and multiple other medical issues as recorded in the chart. The patient does not give a history of any gross bleeding from any site. Current complaints include weakness, shortness of breath, discomfort in the right foot and ankle area, which is the side of the fracture. PHYSICAL EXAMINATION: GENERAL: Reveals an elderly chronically ill-looking female, using supplemental oxygen in bed. VITAL SIGNS: As recorded in the chart. HEENT: Conjunctivae were pale. There is no icterus. There is no palpable adenopathy. LUNGS: By limited examination appeared clear, though respirations are very shallow. Heart size cannot be well demarcated. ABDOMEN: Obese. Right leg has an Doron wrap over an ankle brace. LABORATORY: Evaluation reveals a white count of 13.2, hemoglobin 7.5, hematocrit 24.3, MCV is normal at 89.3, and RDW is also normal at 14.9, platelet count is 281. IMPRESSION: Anemia with indices suggestive of anemia of chronic disease, though she could have a superimposed acute GI bleeding in view of positive stool guaiac. However, I doubt very much that she has had significant blood loss because normally her hematocrit runs around 28-30. The patient had an EEG without any site of bleeding and is to have a colonoscopy. PLAN: I would recommend monitoring her hemoglobin, hematocrit, and consider packed red cell transfusion with a hemoglobin approaches 7 g percent. I would withhold any recombinant erythropoietin at this point. I will follow up with the patient after discharge to resume her recombinant erythropoietin if she is stable. MD JB Gannon/[facility] /[id number]
--- NOTE | 2019-06-08 23:45 | NUR ---
blood transfusion complete. pt tolerated well. no distress noted. bm noted. pt cleaned and repositioned. linen changed at time. report called nurse. tele placed. pt transferred to 289. no distress noted with transfer.
--- NOTE | 2019-06-08 23:47 | NUR ---
Received report from Florence PEOPLES. Patient to room 288.
[2019-06-09] VITALS (7 sets, daily range): BP systolic 139–168; BP diastolic 61–75
--- NOTE | 2019-06-09 00:15 | NUR ---
Patient arrved to floor via stretcher.
--- NOTE | 2019-06-09 01:00 | NUR ---
Patient c/o IV pain and leaking. Attemp x2 failed. Will request nurse from ER. Felix on the floor to start IV.
[2019-06-09] MEDS ORDERED: SODIUM CHLORIDE 0.9% 250ML 250 ML ONE (01:31)
[2019-06-09] MEDS: SODIUM CHLORIDE 0.9% 1000ML 1,000 ML IV SCH ×3 (02:08→23:00)
--- NOTE | 2019-06-09 02:50 | NUR ---
IV restarted in right AC. Blood started
[2019-06-09] MEDS: PANTOPRAZOL 40MG/SOD CHL 0.9% 50 ML IV SCH ×3 (05:00→22:12)
--- NOTE | 2019-06-09 05:07 | NUR ---
Dr Woods on the floor to see patient. Orders written and completed.
--- NOTE | 2019-06-09 06:50 | NUR ---
Received bedside shift report from off going nurse. Patient is resting in bed, no acute distress. Call light within reach. Bed in the lowest position.
[2019-06-09 07:33] LABS: HEMATOCRIT 34.1 % (34.2-44.1); HEMOGLOBIN 10.3 g/dL (12.0-16.0)
[2019-06-09] MEDS ORDERED: HEPARIN SOD (PORCINE) 1000 UNIT/ML SDV ONE (07:42)
[2019-06-09 08:07] LABS: ANION GAP 12.4 mmol/L (8-16); BLOOD UREA NITROGEN 5 mg/dL (7-26); BUN/CREATININE RATIO 7 (6-25); CALCIUM 7.9 mg/dL (8.4-10.2); CARBON DIOXIDE 22 mmol/L (22-29); CHLORIDE 108 mmol/L (98-107); CREATININE, SERUM 0.72 mg/dL (0.57-1.11); EST GLOMERULAR FILTRATION RATE > 60 ML/MIN (60-); GLUCOSE 96 mg/dL (74-118); POTASSIUM 3.4 mmol/L (3.5-5.1); SODIUM 139 mmol/L (136-145)
[2019-06-09] MEDS: NITROGLYCERIN 0.3 MG/HR PATCH TD SCH (09:01)
[2019-06-09] MEDS: IRON SUCROSE 100 MG in SODIUM CHLORIDE 0.9% 100 ML 100 ML IV SCH (09:01)
[2019-06-09] MEDS: NORTRIPTYLINE HCL 25 MG CAP PO SCH ×2 (09:01→22:12)
--- NOTE | 2019-06-09 09:08 | NUR ---
Per patient epoitin medicatin is given by her doctor and will like to wait to receive it.
[2019-06-09] MEDS: BUDESONIDE/FORMOTEROL 160/4.5MCG INHALER INH SCH ×2 (11:45→20:00)
--- NOTE | 2019-06-09 12:08 | NUR ---
Nutrition Intervention Note RD Recommendation(s) for Physician: -ADAT to GI soft per MD. -If diet is not advanced within 48-72 hours, consider alternate source of nutrition. Plan of Care: RD following, monitoring for tolerance and adequacy. ONS when diet is advanced if pt is having poor intake. Nutrition reason for involvement: (early clear liquids-3 days) RD Assessment 06/08: 74 YOF admitted for SIRS with PMH listed below. Pt was seen resting in bed. She reported she is sometimes hungry but other times it is hard for her to eat. She has been tolerating the clear liquid diet so far. She reported she typically never ate a lot. She stated her weight has been stable. She did report she is still having diarrhea, no N/V/chewing or swallowing issues as well as any food allergies. Pt had an EEG- no site of bleeding and plan is for colonoscopy today per MD note. Will continue to monitor. Principal Problems/Diagnoses: SIRS, weakness PMH: History of hypertension. GI: LBM: 06/08, Abd: soft Skin: no wounds recorded Labs: 06/08: K 3.4, Cl 108, BUN 5, Ca 7.9 Meds: gabapentin, abx, phenergan, pantoprazole sodium IVF: NS at 125 ml/hr Ht: 63 in Wt: 160 lbs BMI: 28.3 kg/m^2 IBW:115 lbs Malnutrition Evaluation (06/08) The patient does not meet criteria for a specified degree of malnutrition at this time. Will re-evaluate at follow-up as appropriate. Nutrition Prescription (Diet Order): clear liquids Estimated Nutritional Needs: Calories: 1309-1599kcal/day (18- 22 kcal/kg/day) Weight used : CBW 72.7 kg Protein : 73-109protein/day (1-1.5 gram/kg/day ) Weight used: CBW 72.7kg Diet Adequacy: (Not meeting calorie needs, Not meeting protein needs) Diet Education Needs Assessment: Diet education not indicated, patient on temporary/transition diet. Nutrition Care Level: mod Nutrition Diagnosis: Inadequate energy intake related to medical condition as evidenced by the pt being on clear liquids/NPO for 3 days. Goal: Patient will meet 75-100% of estimated needs by follow up Progress: N/A Interventions: - fiber modified diet, IVF, Prescription medications Monitoring/Evaluation: -total energy intake, Total protein intake, IVF, Prescription medication, Modified diet, Liquid supplement, Weight change Signed: Kelsea Hamilton RD, LD
[2019-06-09 15:02] LABS: HEMATOCRIT 30.8 % (34.2-44.1); HEMOGLOBIN 9.8 g/dL (12.0-16.0)
[2019-06-09] MEDS: LEVOFLOXACIN 750MG/D5W 150ML 150 ML IV SCH (16:00)
[2019-06-09] MEDS ORDERED: GLUCAGON FOR INJ 1 MG VIAL ONE (17:46)
[2019-06-09] MEDS ORDERED: PROPOFOL IV EMULSION 10 MG/ML 50 ML VIAL ONE (17:46)
--- NOTE | 2019-06-09 18:05 | NUR ---
PATIENT OFF THE UNIT FOR PROCEDURE AT THIS TIME.
--- NOTE | 2019-06-09 19:00 | NUR ---
RECEIVED REPORT FROM DAY NURSE. BEDSIDE REPORT COMPLETE. PATIENT IS RESTING IN BED. BED IS IN LOWEST POSITION AND CALL HEBERT IS WITHIN REACH. WILL CONTINUE TO MONITOR PATIENT.
--- NOTE | 2019-06-09 19:34 | NUR ---
Bedside shift report given to oncoming nurse. Patient is off the unit for colonoscopy.
[2019-06-09 20:29] LABS: HEMATOCRIT 30.5 % (34.2-44.1)
[2019-06-09 21:14] LABS: WBC,FECAL (FECAL LACTOFERRIN) POSITIVE (NEGATIVE)
[2019-06-09] MEDS: GABAPENTIN 300 MG CAP PO SCH (22:12)
[2019-06-10] VITALS (8 sets, daily range): BP systolic 131–167; BP diastolic 63–75
--- NOTE | 2019-06-10 03:20 | Operative Report ---
DATE OF PROCEDURE: 06/09/2019 SURGEON: Ryan Woods MD PROCEDURE: Colonoscopy with biopsies. INDICATIONS FOR COLONOSCOPY: Anemia, melena, and EGD. Findings did not explain the patient's anemia. MEDICATIONS: The patient was done under MAC. Please see anesthesiologist's note. PROCEDURE IN DETAIL: With the patient in left lateral decubitus position, a flexible fiberoptic Olympus colonoscope was inserted into the rectum with ease and advanced all the way to the cecum. It was then withdrawn slowly. Mucosa overlying the cecum, ascending colon, transverse colon, and descending colon appeared to be within normal limits. Mucosa overlying the sigmoid colon was diffusely ulcerated. Multiple biopsies were obtained. Some diverticular disease was also noted in the sigmoid colon. The rectum grossly appeared to be within normal limits. The scope was then retroflexed into the distal rectum and the area around the dentate line appeared to be within normal limits. The scope was then straightened out. It was subsequently withdrawn after securing an adequate stool specimen that was sent for the appropriate stool studies. The patient tolerated the procedure well. IMPRESSION: 1. Diverticulosis. 2. Diffusely ulcerated sigmoid colon. PLAN: Follow up histology. Follow up stool studies. Ryan Woods MD [facility] /[id number] cc: Nicola Yusuf MD
[2019-06-10] MEDS: PANTOPRAZOL 40MG/SOD CHL 0.9% 50 ML IV SCH ×4 (05:28→23:55)
[2019-06-10 06:42] LABS: HEMATOCRIT 31.5 % (34.2-44.1)
--- NOTE | 2019-06-10 06:50 | NUR ---
Received bedside shift report from off going nurse. Patient is resting in bed, no acute distress noted. Call light within reach. Bed in the lowest position.
--- NOTE | 2019-06-10 06:51 | NUR ---
REPORT GIVEN TO DAY NURSE. PATIENT IS RESTING COMFORTABLY IN BED. BED IS IN LOWEST POSITION AND CALL HEBERT IS WITHIN REACH.
[2019-06-10 07:00] LABS: ALANINE AMINOTRANSFERASE 7 IU/L (0-55); ALBUMIN 2.6 g/dL (3.5-5.0); ALBUMIN/GLOBULIN RATIO 0.9 (0.8-2.0); ALKALINE PHOSPHATASE 62 IU/L (40-150); BLOOD UREA NITROGEN < 5 mg/dL (7-26); CALCIUM 8.1 mg/dL (8.4-10.2); CARBON DIOXIDE 25 mmol/L (22-29); CHLORIDE 105 mmol/L (98-107); CREATININE, SERUM 0.69 mg/dL (0.57-1.11); EST GLOMERULAR FILTRATION RATE > 60 ML/MIN (60-); GLUCOSE 99 mg/dL (74-118); SODIUM 139 mmol/L (136-145)
[2019-06-10 07:02] LABS: BUN/CREATININE RATIO 7 (6-25)
[2019-06-10] MEDS: BUDESONIDE/FORMOTEROL 160/4.5MCG INHALER INH SCH ×2 (07:30→20:30)
[2019-06-10] MEDS: NORTRIPTYLINE HCL 25 MG CAP PO SCH ×2 (08:30→21:39)
[2019-06-10] MEDS: IRON SUCROSE 100 MG in SODIUM CHLORIDE 0.9% 100 ML 100 ML IV SCH (08:30)
[2019-06-10] MEDS: NITROGLYCERIN 0.3 MG/HR PATCH TD SCH (08:31)
[2019-06-10 09:36] LABS: BASOPHILS % 0.3 % (0.0-1.0); EOSINOPHILS # (AUTO) 0.2 (0.0-0.4); EOSINOPHILS % 2.2 % (0.0-6.0); HEMATOCRIT 31.6 % (34.2-44.1); LYMPHOCYTES # (AUTO) 0.5 (1.0-3.2); LYMPHOCYTES % 6.5 % (18.0-39.1); MEAN CORPUSCULAR HEMOGLOBIN 27.3 pg (28-32); MEAN CORPUSCULAR HGB CONC 31.6 g/dL (31-35); MEAN CORPUSCULAR VOLUME 86.3 fL (81-99); MONOCYTES # (AUTO) 0.5 (0.2-0.8); MONOCYTES % 6.4 % (4.4-11.3); NEUTROPHILS # (AUTO) 6.2 (2.1-6.9); NEUTROPHILS % 84.1 % (38.7-80.0); PLATELET COUNT 287 x10e3/uL (140-360); RED BLOOD COUNT 3.66 x10e6/uL (3.6-5.1); RED CELL DISTRIBUTION WIDTH 15.2 % (11.7-14.4)
[2019-06-10] MEDS ORDERED: POTASSIUM CHLORIDE 20 MEQ TAB CR PO NR ×2 (10:30→14:45)
[2019-06-10 11:32] LABS: HEMATOCRIT 32.4 % (34.2-44.1); HEMOGLOBIN 10.2 g/dL (12.0-16.0)
[2019-06-10] MEDS: SODIUM CHLORIDE 0.9% 1000ML 1,000 ML IV SCH ×2 (13:00→21:39)
[2019-06-10 14:43] LABS: C DIFFICILE TOXIN A&B AMP PROB NEGATIVE (NEGATIVE)
[2019-06-10] MEDS: LEVOFLOXACIN 750MG/D5W 150ML 150 ML IV SCH (15:35)
[2019-06-10] MEDS: GUAIFENESIN/DEXTROMETHORPHAN LIQD 5 ML UDC PO PRN (17:15)
[2019-06-10 17:22] LABS: HEMATOCRIT 30.6 % (34.2-44.1); HEMOGLOBIN 9.8 g/dL (12.0-16.0)
--- NOTE | 2019-06-10 19:08 | NUR ---
Bedside shift report given to oncoming nurse. Patient is resting in bed. No acute distress noted. Family member at bedside. Call light within reach. Bed in the lowest position.
[2019-06-10] MEDS: GABAPENTIN 300 MG CAP PO SCH (21:39)
[2019-06-11] VITALS (7 sets, daily range): BP systolic 127–157; BP diastolic 59–72
[2019-06-11] MEDS: GUAIFENESIN/DEXTROMETHORPHAN LIQD 5 ML UDC PO PRN ×3 (00:28→16:10)
[2019-06-11] MEDS: PANTOPRAZOL 40MG/SOD CHL 0.9% 50 ML IV SCH ×5 (05:52→23:00)
[2019-06-11] MEDS: SODIUM CHLORIDE 0.9% 1000ML 1,000 ML IV SCH ×3 (05:52→23:00)
--- NOTE | 2019-06-11 06:49 | NUR ---
REPORT GIVEN TO DAY NURSE. PATIENT IS RESTING COMFORTABLY IN BED. BED IS IN LOWEST POSITION AND CALL HEBERT IS WITHIN REACH.
--- NOTE | 2019-06-11 06:50 | NUR ---
Received bedside shift report from off going nurse. Patient is resting in bed, no s/s of distress noted. Call light within reach. Bed in the lowest position.
[2019-06-11] MEDS: BUDESONIDE/FORMOTEROL 160/4.5MCG INHALER INH SCH ×2 (07:00→20:40)
[2019-06-11 07:32] LABS: ALANINE AMINOTRANSFERASE 6 IU/L (0-55); ALBUMIN 2.5 g/dL (3.5-5.0); ALBUMIN/GLOBULIN RATIO 0.9 (0.8-2.0); ALKALINE PHOSPHATASE 56 IU/L (40-150); ANION GAP 8.3 mmol/L (8-16); BLOOD UREA NITROGEN 6 mg/dL (7-26); BUN/CREATININE RATIO 9 (6-25); CALCIUM 7.9 mg/dL (8.4-10.2); CARBON DIOXIDE 25 mmol/L (22-29); CHLORIDE 111 mmol/L (98-107); CREATININE, SERUM 0.68 mg/dL (0.57-1.11); EST GLOMERULAR FILTRATION RATE > 60 ML/MIN (60-); GLUCOSE 118 mg/dL (74-118); POTASSIUM 3.3 mmol/L (3.5-5.1); SODIUM 141 mmol/L (136-145)
[2019-06-11 07:49] LABS: BASOPHILS % 0.4 % (0.0-1.0); EOSINOPHILS # (AUTO) 0.2 (0.0-0.4); EOSINOPHILS % 2.2 % (0.0-6.0); HEMATOCRIT 30.2 % (34.2-44.1); HEMOGLOBIN 9.7 g/dL (12.0-16.0); LYMPHOCYTES # (AUTO) 0.5 (1.0-3.2); LYMPHOCYTES % 6.6 % (18.0-39.1); MEAN CORPUSCULAR HGB CONC 32.1 g/dL (31-35); MONOCYTES # (AUTO) 0.6 (0.2-0.8); MONOCYTES % 7.8 % (4.4-11.3); NEUTROPHILS # (AUTO) 6.1 (2.1-6.9); NEUTROPHILS % 81.9 % (38.7-80.0); PLATELET COUNT 263 x10e3/uL (140-360); RED BLOOD COUNT 3.47 x10e6/uL (3.6-5.1); RED CELL DISTRIBUTION WIDTH 15.4 % (11.7-14.4)
[2019-06-11] MEDS: NORTRIPTYLINE HCL 25 MG CAP PO SCH ×2 (08:41→20:15)
[2019-06-11] MEDS: IRON SUCROSE 100 MG in SODIUM CHLORIDE 0.9% 100 ML 100 ML IV SCH (08:41)
[2019-06-11] MEDS: NITROGLYCERIN 0.3 MG/HR PATCH TD SCH (08:42)
--- NOTE | 2019-06-11 12:35 | NUR ---
Educated on IMM letter. Verbalized understanding and signed. Copy to transition folder at bedside, original placed in chart
[2019-06-11] MEDS: LEVOFLOXACIN 750MG/D5W 150ML 150 ML IV SCH (15:05)
[2019-06-11] MEDS ORDERED: POTASSIUM CHLORIDE 20 MEQ TAB CR PO ONE (16:13)
--- NOTE | 2019-06-11 19:03 | NUR ---
Bedside shift report given to oncoming nurse, patient is resting in bed. No acute distress noted at this time. Call light within reach. Bed in the lowest position.
[2019-06-11] MEDS: GABAPENTIN 300 MG CAP PO SCH (20:15)
[2019-06-12] VITALS (8 sets, daily range): BP systolic 116–189; BP diastolic 60–77
[2019-06-12] MEDS: PANTOPRAZOL 40MG/SOD CHL 0.9% 50 ML IV SCH (03:00)
[2019-06-12 06:24] LABS: BASOPHILS % 0.4 % (0.0-1.0); EOSINOPHILS # (AUTO) 0.1 (0.0-0.4); EOSINOPHILS % 1.9 % (0.0-6.0); HEMOGLOBIN 9.2 g/dL (12.0-16.0); LYMPHOCYTES # (AUTO) 0.5 (1.0-3.2); LYMPHOCYTES % 6.6 % (18.0-39.1); MEAN CORPUSCULAR HEMOGLOBIN 27.3 pg (28-32); MEAN CORPUSCULAR HGB CONC 30.7 g/dL (31-35); MONOCYTES # (AUTO) 0.5 (0.2-0.8); MONOCYTES % 6.2 % (4.4-11.3); NEUTROPHILS # (AUTO) 6.1 (2.1-6.9); NEUTROPHILS % 84.5 % (38.7-80.0); PLATELET COUNT 248 x10e3/uL (140-360); RED BLOOD COUNT 3.37 x10e6/uL (3.6-5.1); RED CELL DISTRIBUTION WIDTH 15.6 % (11.7-14.4)
--- NOTE | 2019-06-12 07:09 | NUR ---
REPORT GIVEN TO DAY NURSE. PATIENT IS RESTING COMFORTABLY IN BED. BED IS IN LOWEST POSITION AND CALL HEBERT IS WITHIN REACH.
[2019-06-12] MEDS: BUDESONIDE/FORMOTEROL 160/4.5MCG INHALER INH SCH ×2 (07:30→20:30)
[2019-06-12] MEDS: IRON SUCROSE 100 MG in SODIUM CHLORIDE 0.9% 100 ML 100 ML IV SCH (08:37)
[2019-06-12] MEDS: NORTRIPTYLINE HCL 25 MG CAP PO SCH ×2 (08:38→20:28)
[2019-06-12] MEDS: NITROGLYCERIN 0.3 MG/HR PATCH TD SCH (08:39)
--- NOTE | 2019-06-12 13:09 | NUR ---
Nutrition Intervention Note RD Recommendation(s) for Physician: -Continue current diet per MD. Plan of Care: RD following, monitoring for tolerance and adequacy. Education provided. Nutrition reason for involvement: MD consult- CHF education RD Assessment 06/11: Follow up/MD consult: Pt was seen sitting in her chair eating her lunch. The pt has been advanced to a diet and she reported she has an appetite and she is tolerating it well. She denied N/V/C/D currently. She stated she had a bowel movement. Received consult for CHF, provided the pt with education and handout regarding the Low Na diet, she reported that she usually tries to follow a heart healthy diet at home. Will continue to monitor. 06/08: 74 YOF admitted for SIRS with PMH listed below. Pt was seen resting in bed. She reported she is sometimes hungry but other times it is hard for her to eat. She has been tolerating the clear liquid diet so far. She reported she typically never ate a lot. She stated her weight has been stable. She did report she is still having diarrhea, no N/V/chewing or swallowing issues as well as any food allergies. Pt had an EEG- no site of bleeding and plan is for colonoscopy today per MD note. Will continue to monitor. Principal Problems/Diagnoses: SIRS, weakness PMH: History of hypertension. GI: LBM: 06/10, Abd: soft Skin: no wounds recorded Labs: 06/11: labs reviewed. 06/08: K 3.4, Cl 108, BUN 5, Ca 7.9 Meds: gabapentin, abx, phenergan, pantoprazole sodium IVF: NS at 125 ml/hr Ht: 63 in Wt: 160 lbs BMI: 28.3 kg/m^2 IBW:115 lbs Malnutrition Evaluation (06/08) The patient does not meet criteria for a specified degree of malnutrition at this time. Will re-evaluate at follow-up as appropriate. Nutrition Prescription (Diet Order: GI soft Estimated Nutritional Needs: Calories: 8428-1058 kcal/day (18- 22 kcal/kg/day) Weight used : CBW 72.7 kg Protein : 73-109 protein/day (1-1.5 gram/kg/day ) Weight used: CBW 72.7kg Diet Adequacy: (meeting calorie needs, meeting protein needs) Diet Education Needs Assessment: Diet education indicated, pt accepted. Nutrition Care Level: low- pts diet has advanced and she is meeting her energy and protein needs. Nutrition Diagnosis: Inadequate energy intake related to medical condition as evidenced by the pt being on clear liquids/NPO for 3 days. Goal: Patient will meet 75-100% of estimated needs by follow up Progress: progressing Interventions: - fiber modified diet, IVF, Prescription medications Monitoring/Evaluation: -total energy intake, Total protein intake, IVF, Prescription medication, Modified diet, Liquid supplement, Weight change Signed: Kelsea Hamilton, RD, LD Learner(s): pt Barriers: No barriers identified. Cultural/Language Modifications: No cultural/language modifications noted. Readiness: Pt eager to learn. Method: Discussion, handout Topics: Low Na MNT, food label, foods recommended and not recommended, meal planning, grocery shopping tips Understanding/Compliance: Expect good understanding/compliance from pt. Addendum: 06/12/19 at 1311 by Kelsea Hamilton DIET pt is allergic to onions per [facility] and - [facility].
--- NOTE | 2019-06-12 14:00 | NUR ---
Rich catheter discontinued at this time per physician orders. Pt tolerated procedure well. She is due to void at 1999.
[2019-06-12] MEDS: GUAIFENESIN/DEXTROMETHORPHAN LIQD 5 ML UDC PO PRN ×2 (14:12→20:28)
[2019-06-12] MEDS: LEVOFLOXACIN 750MG/D5W 150ML 150 ML IV SCH (16:16)
--- NOTE | 2019-06-12 19:05 | NUR ---
Patient visited in room during nursing rounds. Patient alert and oriented x3. Right leg to right foot covered with margie wrap and foot is splinted (non-wt bearing). Pt gets up out of bed prn with assistance and uses bedside commode prn. Pt has frequent non-productive cough. Call marques within reach.
[2019-06-12] MEDS: GABAPENTIN 300 MG CAP PO SCH (20:28)
--- NOTE | 2019-06-12 20:30 | NUR ---
Spoke with Dr. Yusuf over the phone and informed of patient's elevated BP (189/77). MD aware and ordered to re-start home meds especially BP meds (see med req list for details).
[2019-06-12] MEDS ORDERED: NON-FORMULARY MEDICATION (Famotidine 40 MG) PO SCH (21:00)
[2019-06-12] MEDS ORDERED: AMLODIPINE BESYLATE 5 MG PO SCH (21:00)
[2019-06-12] MEDS ORDERED: FAMOTIDINE 20 MG TAB PO SCH (21:00)
[2019-06-12] MEDS: LABETALOL HCL 200 MG TAB PO SCH (22:37)
[2019-06-12] MEDS: AMLODIPINE BESYLATE 5 MG TAB PO SCH (22:37)
[2019-06-12] MEDS: CLONIDINE HCL 0.3 MG TAB PO SCH (22:37)
[2019-06-12] MEDS: CLOPIDOGREL BISULFATE 75 MG TAB PO SCH (22:37)
[2019-06-12] MEDS: SODIUM CHLORIDE 0.9% 1000ML 1,000 ML IV SCH (22:40)
[2019-06-13] VITALS: BP 154/68
[2019-06-13 04:00] VITALS: BP 161/70
[2019-06-13] MEDS: BUDESONIDE/FORMOTEROL 160/4.5MCG INHALER INH SCH (07:00)
[2019-06-13 07:52] VITALS: BP 103/55
[2019-06-13] MEDS ORDERED: AMYLASE PO SCH (08:00)
[2019-06-13] MEDS ORDERED: LIPASE PO SCH (08:00)
[2019-06-13] MEDS ORDERED: PROTEASE PO SCH (08:00)
[2019-06-13] MEDS ORDERED: [UNRECOGNIZED DRUG - OTHER] PO SCH (08:00)
[2019-06-13 08:02] VITALS: BP 103/55
[2019-06-13] MEDS: IRON SUCROSE 100 MG in SODIUM CHLORIDE 0.9% 100 ML 100 ML IV SCH (08:42)
[2019-06-13] MEDS: AMYLAS/CELLU/LIPAS/PROTEA/BILE 12,000 UNIT CAP PO SCH ×3 (08:42→17:08)
[2019-06-13] MEDS: FERROUS SULFATE 325 MG TAB PO SCH ×2 (08:44→17:08)
[2019-06-13] MEDS: NORTRIPTYLINE HCL 25 MG CAP PO SCH (08:45)
[2019-06-13] MEDS: CLOPIDOGREL BISULFATE 75 MG TAB PO SCH (08:46)
[2019-06-13] MEDS ORDERED: FUROSEMIDE 40 MG TAB PO SCH (09:00)
[2019-06-13] MEDS ORDERED: NON-FORMULARY MEDICATION (Escitalopram Oxalate 5 MG) PO SCH (09:00)
[2019-06-13] MEDS ORDERED: LOSARTAN POTASSIUM 100 MG TAB PO SCH (09:00)
[2019-06-13] MEDS ORDERED: CRESTOR 10MG PO SCH (09:00)
[2019-06-13] MEDS: LABETALOL HCL 200 MG TAB PO SCH ×2 (09:00→17:09)
[2019-06-13] MEDS ORDERED: NON-FORMULARY MEDICATION (Aspirin 81 MG) SCH (09:00)
[2019-06-13] MEDS ORDERED: NON-FORMULARY MEDICATION (Rosuvastatin Calcium 40 MG) PO SCH (09:00)
[2019-06-13] MEDS ORDERED: ESCITALOPRAM OXALATE 10 MG TAB PO SCH (09:00)
[2019-06-13] MEDS ORDERED: FOLIC ACID 1 MG TAB PO SCH (09:00)
[2019-06-13] MEDS: CLONIDINE HCL 0.3 MG TAB PO SCH ×2 (09:00→17:00)
[2019-06-13] MEDS ORDERED: ASPIRIN 81 MG ENTERIC COATED PO SCH (09:00)
[2019-06-13] MEDS: AMLODIPINE BESYLATE 5 MG TAB PO SCH (09:00)
[2019-06-13] MEDS: NITROGLYCERIN 0.3 MG/HR PATCH TD SCH (09:00)
[2019-06-13] MEDS ORDERED: PSYLLIUM HUSK PO SCH (09:00)
--- NOTE | 2019-06-13 10:29 | NUR ---
FROM [facility]
[2019-06-13 12:06] VITALS: BP 131/71
--- NOTE | 2019-06-13 15:34 | NUR ---
ORDER RECEIVED TO DC PT HOME TODAY. PT CHOSE NOT TO RETURN TO [facility]. MET W THE PT AT THE BEDSIDE. IMM LETTER EXPLAINED TO PT. PT VERBALIZED UNDERSTANDING. IMM LETTER SIGNED. COPY TO PT AND COPY TO CHART. PT STATES SHE WANTED TO SPEAK W CM. STATES SHE WOULD LIKE FOR SOMEONE TO CHECK ON HER INITIALLY. DISCUSSED HOME HEALTH. STATES SHE WOULD LIKE HOME HEALTH FOR NOW. CALL TO DR. JOSEPH FOR HH ORDER. 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 PT PROVIDED LIST OF HH AGENCIES. CHOSE [facility] @ [phone] / FAX: [phone]. REFERRAL WAS FAXED AND [facility] NOTIFIED.
--- NOTE | 2019-06-13 15:37 | NUR ---
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
[2019-06-13 16:06] VITALS: BP 124/53
--- NOTE | 2019-06-13 19:00 | NUR ---
Pt discharged home at this time. 0 s/s of acute distress noted at time of discharge. Pt verbalized understanding of all discharge instructions and all follow up appointments. Pt left by ambulance on stretcher..
--- NOTE | 2019-06-14 06:55 | Discharge Summary ---
Ms. Olea is a charming but very complex 74-year-old woman, who was admitted from the office with hypotension. HOSPITAL COURSE: The patient initially felt to be septic with a white cell count markedly elevated and was given broad-spectrum antibiotics. Cultures were obtained. She recently had a right fibular fracture from a fall. Shortly after admission, the patient had a large stool that was guaiac-positive and Dr. Ryan Woods was consulted, who found that she had a gastrointestinal bleeding from ulcerative sigmoiditis on colonoscopy. Certain studies are still pending from that study and stool studies. She was transfused 2 units of packed red cells. Did not have any further evidence of bleeding. Initially, her blood pressure medicines were held, but on the evening of the , her blood pressure rebounded and back to her usual levels and she resumed her regular home medications. Today, the patient has finished an IV iron infusion and is eager to be discharged home. Her recently had coronary bypass graft surgery. She is discharged home to continue her previous medications of amlodipine 5 mg daily, aspirin 81 mg daily, Symbicort inhaler, clonidine 0.3 b.i.d., clopidogrel 75 mg daily, Procrit, escitalopram 5 mg daily, famotidine 40 mg daily, folic acid 1 mg daily, furosemide 40 mg daily, gabapentin 300 mg at bedtime, iron tablet daily, labetalol 200 mg twice a day, Creon capsules, losartan 100 mg daily, nitroglycerin patch, nortriptyline 25 mg b.i.d., omeprazole 40 mg daily, Metamucil, and rosuvastatin 40 mg daily. She will follow up in the office with Dr. Pernell Oscar and Dr. Palumbo and Dr. Ryan Woods as necessary. DISCHARGE DIAGNOSES: 1. Sepsis, resolved. 2. Gastrointestinal bleeding. 3. Hypotension, resolved. 4. History of severe hypertension. 5. History of vascular disease. MD KISHAN Merida/[place] /[id number] cc: MD Ryan Davis MD Mohamed M Haq, MD
[2019-06-22] MEDS ORDERED: CLONIDINE HCL 0.3 MG TAB PO SCH (21:00)
== END 2019-06-13 19:00 | disposition home health service (06) | DRG 872 ==
LOC: ER 15:16 → ERHOLD 18:09 → IMCU 22:21 → MED/SURG3 06-08 23:56
PROVIDERS: ADMIT Internal Medicine Cardiovascular Disease; ATTEND Internal Medicine Cardiovascular Disease
PROC: 0D598ZZ Destruction of Duodenum, Via Natural or Artificial Opening Endoscopic (ICD-10-PCS; 2019-06-07)
PROC: 30233P1 Transfusion of Nonautologous Frozen Red Cells into Peripheral Vein, Percutaneous Approach (ICD-10-PCS; principal; 2019-06-08)
PROC: 0DBN8ZX Excision of Sigmoid Colon, Via Natural or Artificial Opening Endoscopic, Diagnostic (ICD-10-PCS; 2019-06-09)
PROC: 0DBB8ZX Excision of Ileum, Via Natural or Artificial Opening Endoscopic, Diagnostic (ICD-10-PCS; 2019-06-09)
DX: A41.9 Sepsis, unspecified organism (principal); K63.3 Ulcer of intestine; I31.3 Pericardial effusion (noninflammatory); Q27.33 Arteriovenous malformation of digestive system vessel; K29.70 Gastritis, unspecified, without bleeding; K44.9 Diaphragmatic hernia without obstruction or gangrene; K52.9 Noninfective gastroenteritis and colitis, unspecified; I48.0 Paroxysmal atrial fibrillation; Z79.01 Long term (current) use of anticoagulants; D64.9 Anemia, unspecified; K57.90 Diverticulosis of intestine, part unspecified, without perforation or abscess without bleeding; J44.9 Chronic obstructive pulmonary disease, unspecified
CPT/HCPCS: 36415; 36600; 43255; 45380; 71046; 74176; 78227; 78278; 80048; 80053; 81001; 82270; 82550; 82553; 82607; 82728; 82746; 83540; 83605; 83630; 83880; 83993; 84132; 84466; 84484; 85014; 85018; 85025; 85045; 85610; 86850; 86900; 86920; 87040; 87045; 87177; 87328; 87493; 88305; 88342; 93005; 94664; 97139; 99284; A9512; A9537; J1610; J1644; J1756; J2405; J3480; J7030; J7050; P9016

== ENCOUNTER 2019-07-17 11:46 | Inpatient (IN) | payer MEDICARE, OTHER ==
[~2019-07-17] VITALS: Ht 160 cm; Wt 72.6 kg
[~2019-07-17 11:46] MED LIST changes: +AMLODIPINE BES2.5 MG PO; +CLONIDINE HCL0.3 MG PO; +CLOPIDOGREL75 MG PO; +CREON DR 24,001 EACH PO; +ESCITALOPRAM OXA5 MG PO; +FAMOTIDINE40 MG PO; +GABAPENTIN300 MG PO; +LABETALOL HCL200 MG PO; +LOSARTAN POTAS100 MG PO; +METAMUCIL0.4 GM PO; +NITROGLYCERIN1 EAC1 TOP; +OMEPRAZOLE40 MG PO; +PROCRIT20000 UNIT SQ; +ROSUVASTATIN CA40 MG PO; +iron PO
--- OUTSIDE RECORDS SUMMARY | 2019-07-17 11:51 | XMS REPORT | Summary of Care ---
Author Author CARLOS Azul, ARIANNA Gaona Unknown Address [facility] Phone Unavailable Care Team Providers Care Well Service Floorperson Name Role Phone ARIANNA GONZALEZ M.D. Unavailable Unavailable GEREMIAS REDD MD Unavailable Unavailable CARLOS FLOR[place], ARIANNA Anderson Unavailable Unavailable Unavailable Unavailable Functional Status Name Dates Details Functional status health issues are not documented Status: Name Dates Details Cognitive status health issues are not documented Status: Problems Name Dates Details Limb pain (729.5, M79.609) Status: Active Hip pain associated with recalled total hip arthroplasty hardware, initial encounter (996.77, T84.84XA) Status: Active Hip pain, right (719.45, M25.551) Status: Active Artificial joint pain, initial encounter (996.77, T84.84XA) Status: Active Follow-up exam (V67.9, Z09) Status: Active Medications Name Dates Details Folic Acid 1 MG Oral Tablet TAKE 1 TABLET DAILY. M.A. Active Omeprazole 40 MG Oral Capsule Delayed Release TAKE 1 CAPSULE TWICE DAILY * Quantity: 180 Refills: 1 M.A. Active Crestor 40 MG Oral Tablet TAKE 1 TABLET DAILY. * Refills: 0 M.A. Active Ecotrin Low Strength 81 MG Oral Tablet Delayed Release * Refills: 0 M.A. Active Fish Oil CAPS * Refills: 0 M.A. Active Fiber CAPS * Refills: 0 M.A. Active Labetalol HCl TABS * Refills: 0 M.A. Active Cozaar 50 MG Oral Tablet * Refills: 0 M.A. Active Folic Acid CAPS * Refills: 0 M.A. Active Plavix 75 MG Oral Tablet * Refills: 0 M.A. Active Calcium TABS * Refills: 0 M.A. Active amLODIPine Besylate 10 MG Oral Tablet * Refills: 0 M.A. Active raNITIdine HCl - 300 MG Oral Tablet * Refills: 0 M.A. Active Iron TABS * Refills: 0 M.A. Active Diclofenac Sodium 1 % Transdermal Gel APPLY TO LOWER EXTREMITIES, 4 GM OF GEL TO AFFECTED AREA 4 TIMES DAILY. DO NOT APPLY MORE THAN 16 GM DAILY TO ANY ONE AFFECTED JOINT. * Quantity: 5 Refills: ARIANNA RUIZ M.D. * Start : 23-Jun-2017 Active 100 [...] History of Chiari malformation type II (741.00, Q07.01) Status: Resolved History of chronic bronchitis (V12.69, [...] Dates Details - Status: Name Dates Details Ex-smoker (finding) Vital Signs Date Test Result Details No Known Vitals to report Results Date Description Value Details Results not documented Plan of Care Name Dates Details Planned Observations Planned Goals not documented Planned Encounters Pain Management Referral Interventions Provided Medication Changes* Diclofenac Sodium 1 % Transdermal Gel - Start Instructions Name Dates Details Instructions not documented [...]
[2019-07-17] MEDS ORDERED: SODIUM CHLORIDE FLUSH 10 ML SYR INJ PRN (12:00)
[2019-07-17] MEDS ORDERED: SODIUM CHLORIDE 0.9% 1000ML 1,000 ML IV STA (12:14)
[2019-07-17] MEDS ORDERED: AZITHROMYCIN 500MG/NS 250 ML 250 ML IV ONE (12:15)
[2019-07-17] MEDS ORDERED: CEFTRIAXONE SOD 1 GM/NS 50 ML 50 ML IV ONE (12:15)
[2019-07-17] MEDS ORDERED: ACETAMINOPHEN 325 MG TAB PO ONE (12:15)
[2019-07-17] MEDS ORDERED: METHYLPREDNISOLONE SOD SUCC 125 MG/2ML VIAL IV STA (12:32)
[2019-07-17] MEDS ORDERED: ALBUTEROL/IPRATROPIUM 3 ML NEB NEB ONE (12:45)
[2019-07-17] MEDS ORDERED: ALBUTEROL SULFATE HFA 8GM INHALATION AEROSOL INH STA (12:52)
--- NOTE | 2019-07-17 13:05 | Diagnostic Imaging Report ---
EXAMINATION: CXR 1 [facility] INDICATION: Cough, fever COMPARISON: Chest radiograph 06/06/2019 FINDINGS: LINES/TUBES:Left chest pacer. Loop recorder device. LUNGS:The lungs are well-inflated. Developing vague airspace opacity at the right midlung PLEURA:No pleural effusion or pneumothorax. MEDIASTINUM:The cardiomediastinal silhouette appears unchanged in size and shape. Atherosclerotic calcifications of the thoracic aorta. BONES/SOFT TISSUES:No acute osseous injury. ABDOMEN:No free air under the diaphragm. IMPRESSION: New vague airspace opacity at the right peripheral midlung, concerning for developing pneumonia. Signed by: Haylie Sena MD on 07/17/2019 1:01 PM
[2019-07-17] MEDS ORDERED: ACETAMINOPHEN 325 MG TAB ONE (13:06)
[2019-07-17] MEDS ORDERED: CEFTRIAXONE SOD 1 GM VIAL ONE (13:06)
[2019-07-17] MEDS ORDERED: METHYLPREDNISOLONE SOD SUCC 125 MG/2ML VIAL ONE (13:06)
[2019-07-17] MEDS ORDERED: AZITHROMYCIN 500MG/NS 250 ML 250 ML ONE (13:07)
[2019-07-17] MEDS ORDERED: SODIUM CHLORIDE 0.9% 1000ML 1,000 ML ONE (13:07)
[2019-07-17] MEDS ORDERED: AZITHROMYCIN 500MG/SOD CHL 0.9% 250ML BAG IV SCH (14:15)
[2019-07-17] MEDS ORDERED: ALBUTEROL SULFATE HFA 8GM INHALATION AEROSOL INH PRN (14:15)
--- NOTE | 2019-07-17 15:33 | NUR ---
AAOX3. ACYANOTIC. RESTING IN BED. NO DISTRESS NOTED. ARRIVED TO UNIT AT APPROXIMATELY 1520 VIA STRETCHER.
[2019-07-17 15:51] VITALS: BP 130/60
[2019-07-17 16:14] VITALS: BP 130/60
[2019-07-17 17:25] VITALS: BP 132/68
[2019-07-17] MEDS: SODIUM CHLORIDE 0.9% 1000ML 1,000 ML IV SCH ×2 (18:15→22:09)
--- NOTE | 2019-07-17 18:52 | Consultation ---
DATE OF CONSULTATION: REASON FOR CONSULTATION: Pneumonia, fever and chills. HISTORY OF PRESENT ILLNESS: This patient who is a very pleasant 74-year-old white female, history of diabetes mellitus, comes in with 2 weeks history of fever, cough, shortness of breath. Her told her that she need to come to the hospital to be admitted. The patient came to an outside facility. A chest x-ray showed airspace opacity, right peripheral mid lung. The patient was admitted. The patient is currently lying in the bed. Since we are in the mid of COVID-19 outbreak the patient is being checked. PAST MEDICAL HISTORY: Significant for hypertension, diabetes. PAST SURGICAL HISTORY: Denies. ALLERGIES: PENICILLIN BUT THE FACT THAT SHE REALLY GETS SKIN RASH WITH THAT SHE SAID. SOCIAL HISTORY: There is no smoking, drug abuse, or alcohol abuse. The patient was sent to the hospital to be admitted. She is currently lying in bed, comfortable, complaining of some shortness of breath and cough. Her past medical history as above. Past surgical history as above. OBJECTIVE: GENERAL: She is currently alert, oriented, does not seem to be in any acute distress. VITAL SIGNS: Stable, afebrile. HEENT: She is not icteric. NECK: Supple. CHEST: Crackles bilateral. COR: S1, S2. No S3, S4 or murmur. ABDOMEN: Soft. Bowel sounds present. No tenderness. EXTREMITIES: No edema. SKIN: There is no rash. IMPRESSION: Community-acquired pneumonia, concerned about COVID-19. We will put her on droplet isolation with Rocephin and azithromycin for bacterial infection. IV fluids and supportive care. Discussed with the patient at length, answered all her questions. We will follow. MD TU Jones/[place] /[id number]
[2019-07-17] MEDS ORDERED: METHYLPREDNISOLONE SOD SUCC 40 MG/ML VIAL 1ML IV SCH (20:00)
[2019-07-17] MEDS ORDERED: ACETAMINOPHEN 325 MG TAB PO PRN (20:15)
[2019-07-17] MEDS ORDERED: ONDANSETRON HCL INJ 2MG/ML 2ML 2 MG/ML VIAL IV PRN (20:15)
[2019-07-17] MEDS ORDERED: ACETAMINOPHEN/CODEINE 300MG - 30MG TAB PO PRN (20:15)
[2019-07-17] MEDS ORDERED: HYDRALAZINE HCL 20 MG/ML VIAL IV PRN (20:15)
[2019-07-17 20:23] VITALS: BP 141/60
[2019-07-17] MEDS: METHYLPREDNISOLONE SOD SUCC 125 MG/2ML VIAL IV SCH (20:58)
[2019-07-17] MEDS: GABAPENTIN 300 MG CAP PO SCH ×2 (20:59→21:01)
[2019-07-17] MEDS: CEFTRIAXONE SOD 1 GM/NS 50 ML 50 ML IV SCH (22:48)
[2019-07-17 22:57] VITALS: BP 141/60
[2019-07-17] MEDS ORDERED: CEFTRIAXONE SOD 1 GRAM/0.9% SOD CHL 50ML BAG IV SCH (23:00)
[2019-07-18 00:27] VITALS: BP 160/71
[2019-07-18] MEDS: METHYLPREDNISOLONE SOD SUCC 125 MG/2ML VIAL IV SCH ×2 (02:00→09:30)
[2019-07-18 03:35] VITALS: BP 170/73
[2019-07-18 04:49] LABS: HEMATOCRIT 26.7 % (34.2-44.1); HEMOGLOBIN 8.3 g/dL (12.0-16.0); LYMPHOCYTES # (AUTO) 0.2 (1.0-3.2); LYMPHOCYTES % 3.2 % (18.0-39.1); MEAN CORPUSCULAR HEMOGLOBIN 27.8 pg (28-32); MEAN CORPUSCULAR HGB CONC 31.1 g/dL (31-35); MEAN CORPUSCULAR VOLUME 89.3 fL (81-99); MONOCYTES # (AUTO) 0.1 (0.2-0.8); MONOCYTES % 1.1 % (4.4-11.3); NEUTROPHILS # (AUTO) 5.3 (2.1-6.9); NEUTROPHILS % 94.8 % (38.7-80.0); PLATELET COUNT 208 x10e3/uL (140-360); RED BLOOD COUNT 2.99 x10e6/uL (3.6-5.1); RED CELL DISTRIBUTION WIDTH 15.1 % (11.7-14.4)
[2019-07-18 05:18] LABS: ANION GAP 7.7 mmol/L (8-16); BLOOD UREA NITROGEN 16 mg/dL (7-26); BUN/CREATININE RATIO 22 (6-25); CARBON DIOXIDE 24 mmol/L (22-29); CHLORIDE 112 mmol/L (98-107); CREATININE, SERUM 0.72 mg/dL (0.57-1.11); EST GLOMERULAR FILTRATION RATE > 60 ML/MIN (60-); GLUCOSE 171 mg/dL (74-118); POTASSIUM 3.7 mmol/L (3.5-5.1); SODIUM 140 mmol/L (136-145)
[2019-07-18 05:39] LABS: THYROID STIMULATING HORMONE 0.525 uIU/mL (0.350-4.940)
[2019-07-18 08:00] VITALS: BP 152/65
[2019-07-18] MEDS ORDERED: PROTEASE PO SCH (08:00)
[2019-07-18] MEDS ORDERED: AMYLASE PO SCH (08:00)
[2019-07-18] MEDS ORDERED: [UNRECOGNIZED DRUG - OTHER] PO SCH (08:00)
[2019-07-18] MEDS ORDERED: LIPASE PO SCH (08:00)
[2019-07-18] MEDS: PANTOPRAZOLE 40 MG 10ML VIAL IV SCH ×2 (08:39→16:41)
[2019-07-18] MEDS: AMYLAS/CELLU/LIPAS/PROTEA/BILE 12,000 UNIT CAP PO SCH ×3 (08:39→16:41)
[2019-07-18] MEDS: NORTRIPTYLINE HCL 25 MG CAP PO SCH ×2 (08:40→16:41)
[2019-07-18] MEDS: LABETALOL HCL 200 MG TAB PO SCH ×2 (08:40→16:41)
[2019-07-18 08:46] VITALS: BP 152/65
[2019-07-18] MEDS ORDERED: AMLODIPINE BESYLATE 5 MG PO SCH (09:00)
[2019-07-18] MEDS ORDERED: NON-FORMULARY MEDICATION (Rosuvastatin Calcium 40 MG) PO SCH (09:00)
[2019-07-18] MEDS ORDERED: FUROSEMIDE 40 MG TAB PO SCH (09:00)
[2019-07-18] MEDS ORDERED: ESCITALOPRAM OXALATE 10 MG TAB PO SCH (09:00)
[2019-07-18] MEDS ORDERED: AZITHROMYCIN 500MG/NS 250 ML 250 ML IV SCH (09:00)
[2019-07-18] MEDS ORDERED: NON-FORMULARY MEDICATION (Escitalopram Oxalate 5 MG) PO SCH (09:00)
[2019-07-18] MEDS ORDERED: FOLIC ACID 1 MG TAB PO SCH (09:00)
[2019-07-18] MEDS ORDERED: AMLODIPINE BESYLATE 5 MG TAB PO SCH (09:00)
[2019-07-18] MEDS ORDERED: CRESTOR 10MG PO SCH (09:00)
--- NOTE | 2019-07-18 10:20 | Consultation ---
DATE OF CONSULTATION: Pulmonary Critical Care consultation CHIEF COMPLAINT: Cough and history of asthma. HISTORY OF PRESENT ILLNESS: The patient is a 74-year-old woman. She has a history of chronic persistent asthma her entire life. She is on Symbicort as a maintenance inhaler as well as a rescue medication. She reports coughing for the past several months. It has been worse over the past couple of weeks. Apparently, she had a possible fever at the [facility] as well as an infiltrate on her chest x-ray. She was referred to the hospital for possible COVID-19. PAST SURGICAL HISTORY: 1. Status post repair of aortic arch aneurysm. 2. Status post right carotid endarterectomy. 3. Status post left carotid endarterectomy. 4. Status post some subclavian bypass. 5. Status post hysterectomy. 6. Status post cholecystectomy. 7. Status post cervical spine surgery for Chiari malformation. 8. Status post pacemaker implantation. PAST MEDICAL HISTORY: 1. Chronic persistent asthma. 2. Diabetes. 3. Atherosclerotic disease. ALLERGIES: THE PATIENT IS ALLERGIC TO PENICILLIN AND SULFA. FAMILY HISTORY: Family history is noncontributory. SOCIAL HISTORY: The patient quit smoking in 2010. She is not an active drinker. REVIEW OF SYSTEMS: The patient is afebrile at home, but apparently had a temperature at the [facility] emergency department of 100.4. She denies headache or neck pain. She does not complain of chest pain. She does have a nonproductive cough. She is not having wheezing or dyspnea at this time. She denies any abdominal pain. There is no nausea or vomiting. She has no leg edema. She has no focal neurological abnormalities. PHYSICAL EXAMINATION: VITAL SIGNS: Blood pressure is 141/60, saturation is 96%, and pulse is 75. HEENT: Shows no facial swelling or erythema. CARDIAC: Reveals a regular rate and rhythm with normal S1 and S2. There are no murmurs or rubs. LUNGS: Auscultation of lungs shows clear breath sounds bilaterally. There is no wheezing. ABDOMEN: Soft, nontender. There is no rebound or guarding. EXTREMITIES: Show no leg edema or calf tenderness. There is no cyanosis or clubbing. SKIN: Shows no rashes. NEUROLOGICAL: Shows no focal abnormalities. RADIOGRAPHIC DATA: Chest x-ray shows a possible opacity in the right peripheral mid lung field. LABORATORY DATA: Hemoglobin is 8.3, white blood cell count is 5.5, and platelet count is 208. BUN to creatinine ratio is normal. Other electrolytes are within normal limits. Urinalysis is within normal limits. IMPRESSION: 1. Chronic persistent asthma. 2. Atypical pneumonia. 3. Hypertension. PLAN: 1. Continue current antibiotics. 2. Continue current inhaler regimen. 3. Monitor and control blood pressures. 4. Possible discharge home after consultation with Dr. Davis and Dr. Gaffney. MD CORIE Zhong/[place] /[id number]
[2019-07-18] MEDS: CEFTRIAXONE SOD 1 GM/NS 50 ML 50 ML IV SCH (11:50)
[2019-07-18] MEDS: SODIUM CHLORIDE 0.9% 1000ML 1,000 ML IV SCH (11:50)
[2019-07-18 12:01] VITALS: BP 151/63
--- NOTE | 2019-07-18 15:49 | NUR ---
Nutrition Screen Note RD Recommendation for Physician: - When feasible, ADAT to goal of 1800 ADA, Cardiac diet Plan of Care: RD following, monitoring for tolerance and adequacy Nutrition reason for involvement: Nutrition risk trigger Primary Diagnose(s): pneumonia, reactive airway disease PMH: HTN, DM, chronic persistent asthma, cholecystectomy, pacemaker Ht: 63 in Wt: 160 lb BMI: 28.3 kg/m2 IBW: [address] Assessment: 07/17: 74 YOF admitted for pneumonia, currently COVID PUI. Pt evaluated today per MST screen. Attempted to call pt, no answer-unable to obtain hx at this time. Per MD notes, no wt loss or poor intake documented. No GI distress reported upon admit. Pt with 50-75% intake currently, tolerating CLD. Chart reviewed. Labs and meds noted. Will continue to monitor. Current Diet: Clear liquids Malnutrition Evaluation The patient does not meet criteria for a specified degree of malnutrition at this time. Will re-evaluate at follow-up as appropriate. Diet Education Needs Assessment: Diet educated not indicated, pt on temporary diet. Diet tolerance: tolerating CLD Nutrition Care Level: low Signed: Brie Suazo RD, LD, [facility]
[2019-07-18] MEDS ORDERED: BUDESONIDE/FORMOTEROL 160/4.5MCG INHALER INH SCH (17:00)
--- NOTE | 2019-07-18 17:10 | NUR ---
NOTIFIED DR. JOSEPH OF CHANGE IN ATTENDING PHYSICIAN FROM DR. WADE TO DR. JOSEPH. INFORMED DR. JOSEPH THAT PATIENT HAS BEEN SEEN AND CLEARED FOR DISCHARGE BY DR. KNOX AND DR. SOLIS. DR. JOSEPH STATES, "I ALREADY KNOW ABOUT THIS PATIENT AND I AM NOT GOING TO SEE HER. THERE'S NOTHING I CAN DO FOR HER. THEY CANNOT CHANGE THE ATTENDING PHYSICIAN TO MYSELF WITHOUT TALKING TO ME FIRST."
[2019-07-18] MEDS ORDERED: CEFDINIR300 MG PO (17:41)
[2019-07-18] MEDS ORDERED: ZITHROMAX500 MG PO (17:41)
[2019-07-18 17:57] VITALS: BP 154/69
--- NOTE | 2019-07-18 19:06 | Discharge Summary ---
ADMISSION DIAGNOSES: 1. Community-acquired pneumonia, present on admission. 2. Hypertension. 3. Asthma. 4. Hyperlipidemia. 5. Acute blood loss anemia, secondary to gastrointestinal bleed. 6. Migraine. 7. Coronary artery disease with PCI. 8. Atrial fibrillation. 9. Urinary tract infection, present on admission. DISCHARGE DIAGNOSES: 1. Community-acquired pneumonia, present on admission. 2. Hypertension. 3. Asthma. 4. Hyperlipidemia. 5. Acute blood loss anemia, secondary to gastrointestinal bleed. 6. Migraine. 7. Coronary artery disease with PCI. 8. Atrial fibrillation. 9. Urinary tract infection, present on admission. 10. Possible COVID. HISTORY: 1. Hypertension. 2. Hyperlipidemia. 3. Asthma. 4. Coronary artery disease with PCI. 5. Pancreatitis. 6. Gastroesophageal reflux disease. 7. Atrial fibrillation. 8. Anemia. SURGICAL HISTORY: 1. Hysterectomy. 2. Cholecystectomy. 3. C-spine surgery. 4. Pacemaker placement. 5. Aortic arch aneurysm repair. 6. Bilateral carotid endarterectomy. 7. Bilateral total hip replacement. FAMILY HISTORY: The patient's daughter has cancer. SOCIAL HISTORY: Noncontributory. HOSPITAL COURSE: A 74-year-old female admits with complaints of cough for the last few months. The cough continued to worsen, so she came to the [facility]. In the ER, she said she had a fever and chest x-ray showed opacities. According to the patient on Wednesday, she had a fever of 102. She denies sick contacts and recent travel. On admission, chest x-ray showed new vague airspace opacity in the right peripheral mid lung concerning for developing pneumonia. Blood cultures were negative x24 hours. Flu was negative. Strep was negative. Outpatient UA showed nitrite. She says she follows Dr. Plasencia and she has a urine sample already that is pending. Infectious Disease was consulted due to possibility of COVID as well as Pulmonology, both have discharged the patient for home. She was advised to continue social distancing until her COVID result comes back. She will follow up with Dr. Davis for results. She was given a prescription for Zithromax and Rocephin, which should help any possible urinary tract infection and bacterial pneumonia. The patient understands discharge instructions and agrees to plan. She will follow up with Dr. Plasencia regarding the urine culture that she already has. Dictated by Rena Hernandez, [employer]PERVISOR MD AFRICA Fox/[place] /[id number]
[2019-07-18] MEDS ORDERED: METHYLPREDNISOLONE SOD SUCC 125 MG/2ML VIAL IV SCH (21:00)
[2019-07-19] MEDS ORDERED: CLOPIDOGREL BISULFATE 75 MG TAB PO SCH (09:00)
[2019-07-19] MEDS ORDERED: LOSARTAN POTASSIUM 100 MG TAB PO SCH (09:00)
--- NOTE | 2019-07-24 12:07 | Consultation ---
DATE OF CONSULTATION: SUBJECTIVE: Ms. Olea is doing better. The patient has history of asthma, on Symbicort, comes in with cough and shortness of breath. The patient has been sick for a couple of weeks. The patient who have history of atherosclerotic disease, aortic aneurysm, hysterectomy, cholecystectomy, cervical spine injury. The patient comes in with shortness of breath and cough. Today, she is feeling much better. REVIEW OF SYSTEMS: better. The pain is better. PHYSICAL EXAMINATION: GENERAL: She is currently alert, oriented, does not seem acute distress. VITAL SIGNS: Stable, afebrile. HEENT: She is not icteric. NECK: Supple. CHEST: Clear bilateral. COR: S1 and S2. No S3, S4, or murmur. ABDOMEN: Soft. IMPRESSION: Acute on chronic exacerbation of her chronic obstructive pulmonary disease, currently on Rocephin and azithromycin for community-acquired pneumonia, clinically looking better and stable, can be discharge home from Infectious Disease point of view. Follow up with COVID result as outpatient. MD TU Jonse/[facility] /[id number]
== END 2019-07-18 18:30 | disposition home or self-care (01) | DRG 177 ==
LOC: FSED 11:46 → ERHOLD 14:05 → IMCU 15:23
PROVIDERS: ADMIT Internal Medicine; ATTEND Internal Medicine
DX: U07.1 COVID-19 (principal); J12.89 Other viral pneumonia; D62 Acute posthemorrhagic anemia; N39.0 Urinary tract infection, site not specified; K92.2 Gastrointestinal hemorrhage, unspecified; I10 Essential (primary) hypertension; E78.5 Hyperlipidemia, unspecified; G43.909 Migraine, unspecified, not intractable, without status migrainosus; I48.91 Unspecified atrial fibrillation; Z79.01 Long term (current) use of anticoagulants; I25.10 Atherosclerotic heart disease of native coronary artery without angina pectoris; J45.909 Unspecified asthma, uncomplicated; Z95.0 Presence of cardiac pacemaker; Z96.643 Presence of artificial hip joint, bilateral; Z88.0 Allergy status to penicillin; Z88.2 Allergy status to sulfonamides; J45.30 Mild persistent asthma, uncomplicated; E11.9 Type 2 diabetes mellitus without complications
CPT/HCPCS: 36415; 71045; 80048; 80053; 81003; 82270; 83036; 83518; 83690; 84443; 85025; 86850; 86900; 87040; 87070; 87400; 87635; 96374; 96376; 99284; J0360; J0456; J0696; J2405; J2920; J2930; J7030